=== PATIENT | female | born 1995 | race Caucasian/White ===

== ENCOUNTER 2020-02-29 19:54 | Emergency (ER) | payer MEDICAID ==
[~2020-02-29] VITALS: Ht 172.7 cm; Wt 86.2 kg
[2020-02-29 20:23] VITALS: BP 139/102
--- NOTE | 2020-02-29 20:29 | NUR ---
PT AMBULATED TO BED 11 WITH STEADY GAIT.
--- NOTE | 2020-02-29 20:40 | NUR ---
24 Y/O FEMALE PRESENTED TO THE ED C/O LUMP ON LABIA [id number]. AND 10/10 PAIN WHEN SHE AMBULATES. PT ALSO STATED THAT SHE DIDN'T CHECK HER GLUCOSE BUT THAT SHE KNOWS ITS ELEVATED BECAUSE SHE FEELS MORE TIRED. PT DENIES LAGUERRE, BLURRY VISION, N/V. PT IS NON COMPLIANT WITH ANTIDIABETIC MEDICATION REGIMEN. PT DESNIES DIFFICULTY URINATING. PT DENIES FEVER. PT DENIES TRAUMA OR INJURY TO THE AREA. TENDERNESS NOTED ON PALPATION OF THE ABCESS ON THE LABIA MAJORA. NO REDNESS NOTED OR DRAINAGE TO THE AREA NOTED. PT LAYING DOWN. NO DIAPHORESIS NOTED. PT IS NOT IN ANY ACUTE DISTRESS AT THIS TIME. BED IS LOCKED AND IN LOWEST POSITION. SIDE RAILS X1. PMH: DM1 NKA
[2020-02-29] MEDS ORDERED: NACL 0.9% 1,000 ML IV ONE (20:50)
[2020-02-29 21:09] LABS: BASOPHILS # (AUTO) 0.1 K/uL (0.00-0.22); BASOPHILS % (AUTO) 0.8 % (0.0-2.0); EOSINOPHILS # (AUTO) 0.1 K/uL (0-0.4); EOSINOPHILS % (AUTO) 0.7 % (0.0-4.0); HEMATOCRIT 39.4 % (36-48); HEMOGLOBIN 13.3 g/dL (12.0-16.0); LYMPHOCYTES # (AUTO) 2.1 K/uL (2.5-16.5); LYMPHOCYTES % (AUTO) 28.6 % (20.5-51.1); MEAN CORPUSCULAR HEMOGLOBIN 30 pg (27-31); MEAN CORPUSCULAR HGB CONC 34 g/dL (33-37); MEAN CORPUSCULAR VOLUME 89.6 fL (80-94); MONOCYTES # (AUTO) 0.3 K/uL (0.8-1.0); MONOCYTES % (AUTO) 3.9 % (1.7-9.3); PLATELET COUNT (AUTO) 205 K/uL (140-450); RED CELL DISTRIBUTION WIDTH 12.9 % (11.6-13.7); WHITE BLOOD COUNT (AUTO) 7.5 K/uL (4.8-10.8)
--- NOTE | 2020-02-29 21:14 | NUR ---
ambulated to restroom with steady gait
--- NOTE | 2020-02-29 21:19 | NUR ---
ambulated back to ed room 11 from restroom with steady gait
[2020-02-29 21:22] LABS: ANION GAP 13.2 (8-16); CREATININE 0.7 mg/dL (0.6-1.3); POTASSIUM 4.2 mmol/L (3.5-5.1)
--- NOTE | 2020-02-29 21:49 | NUR ---
Female Information Technology Architect accompanied female patient for Vaginal Exam administered by TREVOR Meléndez.
--- NOTE | 2020-02-29 21:55 | NUR ---
Female Lift Truck Mechanic accompanied female patient for VAGINAL Exam ADMINISTERED BY TREVOR JACKSON. Addendum: 02/29/20 at 2203 by ZORAIDA Female Lift Truck Mechanic accompanied female patient for Ultrasound VAGINAL Exam ADMINISTERED BY TREVOR JACKSON.
--- NOTE | 2020-02-29 22:04 | NUR ---
urine sample collected and handed to lab.
[2020-02-29] MEDS ORDERED: HYDROcodone/APAP 5/325 MG 1 TAB TAB PO ONE (22:05)
[2020-02-29] MEDS ORDERED: LIDOCAINE MPF 1% 10 MG/ML VIAL INJ ONE ×3 (22:05)
--- NOTE | 2020-02-29 22:30 | NUR ---
Female County Program Technician FOR ERPA JACKSON accompanied female patient for VAGINAL ABCESS DC.
[2020-02-29] MEDS ORDERED: LIDOCAINE MPF 1% 5 ML ONE (22:44)
[2020-02-29] MEDS ORDERED: INSULIN REGULAR, HUMAN 100 UNIT/ML VIAL IVP ONE (23:00)
--- NOTE | 2020-02-29 23:20 | NUR ---
PER TREVOR JACKSON PT IS READY FOR DISCHARGE ONCE HER BLOOD SUGAR GETS IN THE 300S. ERMD IS MADE AWARE.
--- NOTE | 2020-02-29 23:40 | NUR ---
QUINN KEN AT BEDSIDE FOR RE-EVALUATION
--- NOTE | 2020-02-29 23:50 | NUR ---
PT C/O OF BLEEDING ON HERSELF. PT PROVIDED PAD AT THIS TIME. PT AMBULATED TO RESTROOM.
--- NOTE | 2020-02-29 23:54 | NUR ---
NEW SHEET PLACED ON BED FOR PT COMFORT.
--- NOTE | 2020-03-01 00:40 | NUR ---
pt is laying down in bed, bed is locked and in lowest position, side rails x1, pt is not in any acute distress at this time, pt states pain level is 0/10.
[2020-03-01 01:20] VITALS: BP 142/92
--- NOTE | 2020-03-01 01:20 | NUR ---
Patient discharged with v/s stable. Written and verbal after care instructions given and explained. Patient alert, oriented and verbalized understanding of instructions. Ambulatory with steady gait. All questions addressed prior to discharge. ID band removed. Patient advised to follow up with PMD. Rx of norco, augmentin, bactrim, & ibuprofen given. Patient educated on indication of medication including possible reaction and side effects. Opportunity to ask questions provided and answered.
== END 2020-03-01 01:20 | disposition home or self-care (01) ==
LOC: MED 19:54
DX: N76.4 Abscess of vulva (principal); E10.65 Type 1 diabetes mellitus with hyperglycemia
CPT/HCPCS: 36415; 80048; 82948; 85025; 90471; 96360; 99283; J1815; J2001; J7030

== ENCOUNTER 2020-03-03 12:49 | Emergency (ER) | payer MEDICAID, OTHER ==
[~2020-03-03] VITALS: Ht 171.4 cm; Wt 87.1 kg
[2020-03-03 13:05] VITALS: BP 129/94
--- NOTE | 2020-03-03 14:55 | NUR ---
PT TAKEN TO BED 8.
--- NOTE | 2020-03-03 15:10 | NUR ---
24 Y/O FEMALE COMES FROM HOME PRESENTS TO ED FOR REVISION OF INCISION FROM REMOVAL OF CYST TO VAGINAL AREA AND PACKING PLACED. WAS SEEN HERE ON 02/28. WAS TOLD TO COME BACK TO ER FOR RECHECK OF WOUND. PT STATES 2/10 ACHY PAIN, STATES SHE IS STILL SLIGHTLY BLEEDING FROM SITE, SEROSANGUINOUS IN COLOR. DENIES FEVER CHILLS, N/V. HX- DM1 NKA
[2020-03-03 15:30] VITALS: BP 129/94
--- NOTE | 2020-03-03 15:31 | NUR ---
Patient discharged with v/s stable. Written and verbal after care instructions given and explained. Patient verbalized understanding. Ambulatory with steady gait. All questions addressed prior to discharge. Advised to follow up with PMD.
== END 2020-03-03 15:31 | disposition home or self-care (01) ==
LOC: MED 12:49
DX: N76.4 Abscess of vulva (principal); E11.9 Type 2 diabetes mellitus without complications; Z48.00 Encounter for change or removal of nonsurgical wound dressing
CPT/HCPCS: 99281

== ENCOUNTER 2020-08-05 13:38 | Emergency (ER) | payer OTHER, SELFPAY ==
[~2020-08-05] VITALS: Ht 172.7 cm; Wt 86.2 kg
[~2020-08-05 13:38] MED LIST: INSU100I7 SQ; INSU100V3 SQ; LANTUS SUBQ
[2020-08-05 13:48] VITALS: BP 131/89
--- NOTE | 2020-08-05 13:56 | NUR ---
Patient to bed 1. RN evaluating the patient at bedside.
--- NOTE | 2020-08-05 13:57 | NUR ---
24 YO FEMALE BIBA FOR C/O FEELING "DIFFERENT", POSSIBLE , LMP 03/03, DAY UNKNOWN. NO CARE. PT STATES SHE HAD NOT TAKEN HER SUGAR X2DAYS, REMOVED DEVICE AND WHEN REPLACED YESTERDAY BS AT HOME 441. TODAY AT BEDSIDE BS 59. MADE AWARE, PT IS NOT SHOWING SYMPTOMS OF HYPOGLYCEMIA AT THIS TIME. PMH: TYPE 1 DM NKA
[2020-08-05] MEDS ORDERED: DOPPLER MC ONE (14:08)
--- NOTE | 2020-08-05 14:39 | NUR ---
MO Millard at pt bedside for further evaluation.
--- NOTE | 2020-08-05 14:58 | NUR ---
MO Millard at pt bedside for U/S.
[2020-08-05 15:33] VITALS: BP 131/89
== END 2020-08-05 15:33 | disposition home or self-care (01) ==
LOC: MED 13:38
DX: O26.891 Other specified pregnancy related conditions, first trimester (principal); O21.9 Vomiting of pregnancy, unspecified; E10.65 Type 1 diabetes mellitus with hyperglycemia; Z3A.01 Less than 8 weeks gestation of pregnancy
CPT/HCPCS: 81002; 81025; 99284

== ENCOUNTER 2021-10-22 17:41 | Inpatient (IN) | payer MEDICAID, OTHER ==
[~2021-10-22] VITALS: Ht 172.7 cm; Wt 65.8 kg
[2021-10-22] MEDS: BLOOD GLUCOSE MONITORING 1 DEV DEV FS SCH
[2021-10-22] MEDS: NACL 0.9% 1,000 ML IV SCH ×2 (02:55→22:50)
[2021-10-22 17:50] VITALS: BP 126/72
--- NOTE | 2021-10-22 17:51 | NUR ---
PT AMB TO BED 9.
--- NOTE | 2021-10-22 18:49 | NUR ---
26 y/o female, c/o weakness, dry mouth, and general body pain. pt states "my sugar is high", did not do acucheck at home. pt states she also didnt use her insulin because she said "I didnt think I was going to make it here". accucheck at this time is 362, made aware. denies nausea, vomiting, diarrhea. skin is pink/warm/dry. a&o x4 with even and steady gait. lungs clear bl, heart rate even and regular. pt denies any fever, cp, sob, or cough at this time. pt states pain is 9/10 at this time. patient positioned for comfort. hob elevated. bed down. ermd made aware of pt. pmh: dm1 nka med: insulin (did not take at home)
--- NOTE | 2021-10-22 19:19 | NUR ---
Report received from KAYLEE infante. Continuity of pt care at this time.
--- NOTE | 2021-10-22 19:40 | NUR ---
pt appears to be resting w eyes closed in supine position w breathing even and unlabored. will continue to monitor.
[2021-10-22] MEDS ORDERED: NACL 0.9% 2,000 ML IV ONE ×2 (20:05→21:35)
--- NOTE | 2021-10-22 20:05 | NUR ---
Pt reports feeling tired/weak, and dry mouth. denies any pain or other symptoms. aox4, gcs 15.
--- NOTE | 2021-10-22 20:06 | NUR ---
kaci levin assessing pt.
[2021-10-22 20:23] LABS: BASOPHILS % (AUTO) 0.6 % (0.0-2.0); HEMATOCRIT 34.9 % (36-48); HEMOGLOBIN 11.9 g/dL (12.0-16.0); LYMPHOCYTES # (AUTO) 0.8 K/uL (2.5-16.5); LYMPHOCYTES % (AUTO) 10.6 % (20.5-51.1); MEAN CORPUSCULAR HEMOGLOBIN 30 pg (27-31); MEAN CORPUSCULAR HGB CONC 34 g/dL (33-37); MEAN CORPUSCULAR VOLUME 87.3 fL (80-94); MONOCYTES # (AUTO) 0.2 K/uL (0.8-1.0); MONOCYTES % (AUTO) 2.9 % (1.7-9.3); NEUTROPHILS # (AUTO) 6.2 K/uL (1.8-7.7); NEUTROPHILS % (AUTO) 85.9 % (42.2-75.2); PLATELET COUNT (AUTO) 217 K/uL (140-450); RED BLOOD CELL COUNT(AUTO) 3.99 MIL/uL (4.20-5.40); RED CELL DISTRIBUTION WIDTH 13.5 % (11.6-13.7); WHITE BLOOD COUNT (AUTO) 7.2 K/uL (4.8-10.8)
[2021-10-22 20:25] LABS: BILIRUBIN,URINE NEGATIVE (NEGATIVE); BLOOD, URINE 1+ (NEGATIVE); COLOR,URINE YELLOW (YELLOW); LEUKOCYTE ESTERASE ,URINE 1+ (NEGATIVE); NITRITE, URINE POSITIVE (NEGATIVE); UGLUCOSE 3+ (NEGATIVE)
[2021-10-22 20:30] LABS: APPEARANCE,URINE CLOUDY (CLEAR)
[2021-10-22] MEDS ORDERED: ACETAMINOPHEN EXTRA STRENGTH 500 MG TAB PO ONE (20:30)
[2021-10-22 20:38] LABS: ALBUMIN 2.9 g/dL (3.4-5.0); ANION GAP 20.3 (8-16); CARBON DIOXIDE 20.6 mmol/L (21-32); CREATININE 0.6 mg/dL (0.6-1.3); MAGNESIUM 1.2 mg/dL (1.8-2.4); POTASSIUM 3.9 mmol/L (3.5-5.1); TOTAL BILIRUBIN 0.8 mg/dL (0.0-1.0)
[2021-10-22 20:46] LABS: WBC,URINE TOO MANY TO COUNT /HPF (0-5)
[2021-10-22] MEDS ORDERED: INSULIN REGULAR, HUMAN 100 UNIT in NACL 0.9% 100 ML IV SCH ×4 (20:55→22:55)
[2021-10-22] MEDS ORDERED: ONDANSETRON 4 MG/2 ML VIAL IVP PRN (21:00)
[2021-10-22] MEDS ORDERED: POTASSIUM CHLORIDE 10 MEQ TABER PO ONE (21:00)
[2021-10-22] MEDS ORDERED: cefTRIAXone 1,000 MG VIAL ONE (21:16)
--- NOTE | 2021-10-22 22:42 | NUR ---
chen sent to lab.
--- NOTE | 2021-10-22 22:44 | NUR ---
pt reports no longer feeling weak, just tired, ongoing dry mouth. no pain, sob or other symptoms. will continue to monitor.
--- NOTE | 2021-10-22 22:50 | NUR ---
pt BS 274, per ermd to continue insulin drip at 7u/hr for now. per ermd will put in parameters orders for insulin titration in a few moment.
[2021-10-22] MEDS ORDERED: guaiFENesin DM 200/20 MG-10 ML 10 ML UDC PO PRN (22:55)
[2021-10-22] MEDS ORDERED: ONDANSETRON 4 MG/2 ML VIAL IM/IVP PRN (22:55)
[2021-10-22] MEDS ORDERED: DOCUSATE SODIUM 100 MG GELCAP PO PRN (22:55)
[2021-10-22] MEDS ORDERED: ZOLPIDEM 5 MG TAB PO PRN (22:55)
[2021-10-22] MEDS ORDERED: DEXT 5% / NACL 0.45% 1,000 ML IV SCH (22:55)
[2021-10-22] MEDS ORDERED: HYDROcodone/APAP 7.5/325 MG 1 TAB PO PRN (22:55)
[2021-10-22] MEDS ORDERED: INSULIN REGULAR, HUMAN 100 UNIT/ML VIAL IVP SCH (22:55)
[2021-10-22] MEDS ORDERED: POTASSIUM CHLORIDE 40 MEQ, LIDOCAINE MPF 1% 25 MG in NACL 0.9% 250 ML IV PRN ×6 (22:55)
[2021-10-22] MEDS ORDERED: DEXTROSE 50% 50 ML SYR IVP PRN (22:55)
[2021-10-22 23:22] LABS: CHOL/HDL RATIO 4.7 (1-4.5); FREE T4 (FREE THYROXINE) 1.05 ng/dL (0.76-1.46); THYROID STIMULATING HORMONE 0.45 uIU/mL (0.34-3.74)
[2021-10-22 23:23] LABS: PROTHROMBIN TIME 10.1 secs (10.8-13.4)
[2021-10-23] VITALS (16 sets, daily range): BP systolic 103–126; BP diastolic 57–93
--- NOTE | 2021-10-23 00:25 | NUR ---
Pt report given to juan barker. Transfer of care at this time.
--- NOTE | 2021-10-23 00:30 | NUR ---
Patient will be admitted to care of . Admited to icu 2. Will go to room icu 2. Belongings list completed. Report to juan barker.
--- NOTE | 2021-10-23 00:39 | NUR ---
RECEIVED PT. FROM ER. AND ER NURSE GAVE REPORT PRIOR TO TRANSFER. PT. WIDE AWAKE, ALERT, ORIENTED AND AMBULATORY. WILL DO THE ADMISSION.
[2021-10-23 00:42] LABS: ANION GAP 12.6 (8-16); CARBON DIOXIDE 23.6 mmol/L (21-32); CREATININE 0.7 mg/dL (0.6-1.3); POTASSIUM 3.2 mmol/L (3.5-5.1)
[2021-10-23 00:46] LABS: MAGNESIUM 1.1 mg/dL (1.8-2.4); PHOSPHORUS 1.9 mg/dL (2.5-4.9)
[2021-10-23] MEDS: BLOOD GLUCOSE MONITORING 1 DEV DEV FS SCH ×8 (02:55→20:24)
--- NOTE | 2021-10-23 03:45 | NUR ---
BLOOD SUGAR TAKEN AT 0106 AND RESULT 119, BS AT 0207 RESULT 139, BS AT 0315 RESULT 93. STARTED IVF D5 1/2NS AT 200 ML/HR PER MD ORDERED TO RIGHT AC 20G.
[2021-10-23 04:57] LABS: ANION GAP 10.6 (8-16); CARBON DIOXIDE 24.6 mmol/L (21-32); CREATININE 0.5 mg/dL (0.6-1.3); POTASSIUM 3.2 mmol/L (3.5-5.1)
[2021-10-23 05:00] LABS: MAGNESIUM 1.2 mg/dL (1.8-2.4); PHOSPHORUS 2.6 mg/dL (2.5-4.9)
--- NOTE | 2021-10-23 05:16 | NUR ---
BLOOD SUGAR AT 0415, 67 AND AT 0515, 80.
[2021-10-23 05:42] LABS: BASOPHILS % (AUTO) 0.6 % (0.0-2.0); EOSINOPHILS % (AUTO) 0.2 % (0.0-4.0); HEMATOCRIT 33.3 % (36-48); HEMOGLOBIN 11.4 g/dL (12.0-16.0); LYMPHOCYTES # (AUTO) 2.7 K/uL (2.5-16.5); LYMPHOCYTES % (AUTO) 40.5 % (20.5-51.1); MEAN CORPUSCULAR HEMOGLOBIN 30 pg (27-31); MEAN CORPUSCULAR HGB CONC 34 g/dL (33-37); MEAN CORPUSCULAR VOLUME 87.6 fL (80-94); MONOCYTES # (AUTO) 0.3 K/uL (0.8-1.0); MONOCYTES % (AUTO) 4.2 % (1.7-9.3); NEUTROPHILS # (AUTO) 3.6 K/uL (1.8-7.7); NEUTROPHILS % (AUTO) 54.5 % (42.2-75.2); PLATELET COUNT (AUTO) 208 K/uL (140-450); RED BLOOD CELL COUNT(AUTO) 3.81 MIL/uL (4.20-5.40); RED CELL DISTRIBUTION WIDTH 13.8 % (11.6-13.7); WHITE BLOOD COUNT (AUTO) 6.6 K/uL (4.8-10.8)
[2021-10-23] MEDS: NACL 0.9% 1,000 ML IV SCH ×5 (06:55→22:11)
--- NOTE | 2021-10-23 07:11 | NUR ---
NS 250 ML NOT GIVEN FOR THE TIME 2250, PT. STILL IN ER DURING THAT TIME
--- NOTE | 2021-10-23 07:15 | NUR ---
ALL CARE ENDORSED TO RN DAYSHIFT FOR CONTINUITY OF CARE.
--- NOTE | 2021-10-23 07:20 | NUR ---
BLOOD SUGAR AT THIS TIME 105 AND ENDORSED TO DAY SHIFT RN.
--- NOTE | 2021-10-23 07:30 | NUR ---
RECEIVED REPORT FROM HANNY . PT.AWAKE ALERT ON ROOM AIR , AND ON INSULIN DRIP 0.5/KG/H IVFLUID D5.45 NS AT 250/H AT THE TIME.,SKIN DRY WARM AND INTACT,DENIER PAIN.
--- NOTE | 2021-10-23 08:48 | NUR ---
PATIENT HAS BEEN SCREENED AND CATEGORIZED HIGH NUTRITION RISK. PATIENT WILL BE SEEN WITHIN 1-2 DAYS OF ADMISSION. / FLYNN GANNON RD
[2021-10-23 08:49] LABS: ANION GAP 9.6 (8-16); CARBON DIOXIDE 26.9 mmol/L (21-32); CREATININE 0.6 mg/dL (0.6-1.3); POTASSIUM 3.5 mmol/L (3.5-5.1)
[2021-10-23 08:54] LABS: MAGNESIUM 1.1 mg/dL (1.8-2.4); PHOSPHORUS 1.9 mg/dL (2.5-4.9)
[2021-10-23] MEDS: PANTOPRAZOLE 40 MG TABEC PO SCH (09:00)
--- NOTE | 2021-10-23 09:24 | NUR ---
SEEN BY DR FORTE AT BED SIDE, ORDER RECEIVED,
[2021-10-23] MEDS ORDERED: INSULIN LANTUS 100 UNITS/ML 10 ML VIAL SUBQ SCH (09:25)
--- NOTE | 2021-10-23 10:15 | NUR ---
INSULIN DRIP D/C ,PT. AWAKE AND ALERT NO NAUSEA OR VOMITING.
--- NOTE | 2021-10-23 11:30 | NUR ---
SEEN BY CHESTER LOVE AT BED SIDE, ORDER RECEIVED .
--- NOTE | 2021-10-23 11:45 | NUR ---
BS 254 INSULIN COVER ORDERED
[2021-10-23] MEDS: INSULIN LISPRO 100 UNITS/ML VIAL SUBQ SCH ×2 (11:51→18:11)
[2021-10-23] MEDS ORDERED: POTASSIUM CHLORIDE 10 MEQ TABER PO PRN (14:05)
[2021-10-23 14:23] LABS: ANION GAP 13.8 (8-16); CREATININE 0.7 mg/dL (0.6-1.3); POTASSIUM 3.8 mmol/L (3.5-5.1)
--- NOTE | 2021-10-23 14:56 | NUR ---
10/23/21 RD FOLLOW UP COMPLETED PLEASE REFER TO NUTRITION ASSESSMENT UNDER CARE ACTIVITY FOR ESTIMATED NUTRITIONAL NEEDS. 1. [facility] DIET TOLERATED -MONITOR PO INTAKE AND GI SYMPTOMS 2. PROVIDED NUTRITION EDUCATION FOR DIABETES WITH HANDOUTS 3. RD TO FOLLOW-UP 3-5 DAYS, MODERATE RISK FLYNN GANNON RD
--- NOTE | 2021-10-23 15:16 | NUR ---
OOB TO TOILET OUTSIDE FROM ICU WITH OUT PROBLEM.
[2021-10-23 15:34] LABS: MAGNESIUM 1.2 mg/dL (1.8-2.4); PHOSPHORUS 1.6 mg/dL (2.5-4.9)
[2021-10-23] MEDS: POTASSIUM CHLORIDE 10 MEQ TABER PO PRN (15:49)
[2021-10-23] MEDS ORDERED: INSULIN LISPRO SLIDING SCALE 100 UNITS/ML VIAL SUBQ PRN (16:20)
[2021-10-23 16:30] LABS: ANION GAP 11.6 (8-16); CARBON DIOXIDE 24.1 mmol/L (21-32); CREATININE 0.5 mg/dL (0.6-1.3); POTASSIUM 3.7 mmol/L (3.5-5.1)
--- NOTE | 2021-10-23 17:00 | NUR ---
BLOOD SUGAR 241 INSULIN COVER ORDERED. + 8UNIT LISPO INSULIN BEFOR MEAL.
--- NOTE | 2021-10-23 17:30 | NUR ---
VISIT BY FAMILY AT BEDSIDE,
[2021-10-23] MEDS: INSULIN LISPRO SLIDING SCALE 100 UNITS/ML VIAL SUBQ PRN ×2 (18:12→20:29)
--- NOTE | 2021-10-23 18:30 | NUR ---
DINNER TOOK 90% denied pain.
--- NOTE | 2021-10-23 19:23 | NUR ---
RESTING COCTOSTABILELY. REPORT GIVE TO GIOVANNI FOR CONTINUE CARE.
--- NOTE | 2021-10-23 19:30 | NUR ---
RECEIVED REPORT FROM IMER PAGE. PT LYING IN SUPINE POSITION WITH NO COMPLAINTS. ON ASSESSMENT PT HAD A HI TEMPERATURE 101.5. COVERS REMOVED AND TYLENOL 650MG PO GIVEN . RECHECKED TEMPERATURE AT 2100; TEMP DOWN TO 99.6 PO. OT WALKED TO THE BATHROOM AND HAD A MODERATE SIZE BM. BROWN IN COLOR.PT AMBULATES WITH A STEADY GAIT, BUT IS ASSISTED TO THE BATHROOM.
[2021-10-23] MEDS: ACETAMINOPHEN 325 MG TAB PO PRN (19:41)
[2021-10-23 20:17] LABS: ANION GAP 12.4 (8-16); CARBON DIOXIDE 25.1 mmol/L (21-32); CREATININE 0.6 mg/dL (0.6-1.3); POTASSIUM 4.5 mmol/L (3.5-5.1)
[2021-10-23 20:22] LABS: MAGNESIUM 1.3 mg/dL (1.8-2.4); PHOSPHORUS 1.6 mg/dL (2.5-4.9)
[2021-10-23 22:58] LABS: MAGNESIUM 1.2 mg/dL (1.8-2.4); PHOSPHORUS 1.8 mg/dL (2.5-4.9)
[2021-10-24] VITALS: BP 128/92
[2021-10-24 01:29] LABS: ANION GAP 12.2 (8-16); CARBON DIOXIDE 24.2 mmol/L (21-32); CREATININE 0.5 mg/dL (0.6-1.3); POTASSIUM 3.4 mmol/L (3.5-5.1)
[2021-10-24 01:31] LABS: MAGNESIUM 1.4 mg/dL (1.8-2.4); PHOSPHORUS 2.2 mg/dL (2.5-4.9)
[2021-10-24] MEDS: NACL 0.9% 1,000 ML IV SCH ×4 (03:01→14:40)
[2021-10-24 05:00] LABS: ANION GAP 9.4 (8-16); CREATININE 0.5 mg/dL (0.6-1.3); POTASSIUM 3.4 mmol/L (3.5-5.1)
[2021-10-24 05:06] LABS: HEMATOCRIT 32.6 % (36-48); HEMOGLOBIN 10.9 g/dL (12.0-16.0); MEAN CORPUSCULAR HEMOGLOBIN 30 pg (27-31); MEAN CORPUSCULAR HGB CONC 33 g/dL (33-37); MEAN CORPUSCULAR VOLUME 88.6 fL (80-94)
[2021-10-24 05:07] LABS: MAGNESIUM 1.2 mg/dL (1.8-2.4); PHOSPHORUS 2.2 mg/dL (2.5-4.9)
[2021-10-24 05:23] LABS: BASOPHILS % (AUTO) 0.9 % (0.0-2.0); EOSINOPHILS % (AUTO) 0.3 % (0.0-4.0); LYMPHOCYTES % (AUTO) 41.1 % (20.5-51.1); MONOCYTES # (AUTO) 0.3 K/uL (0.8-1.0); MONOCYTES % (AUTO) 5.6 % (1.7-9.3); NEUTROPHILS # (AUTO) 2.5 K/uL (1.8-7.7); NEUTROPHILS % (AUTO) 52.1 % (42.2-75.2); PLATELET COUNT (AUTO) 180 K/uL (140-450); RED BLOOD CELL COUNT(AUTO) 3.68 MIL/uL (4.20-5.40); RED CELL DISTRIBUTION WIDTH 13.4 % (11.6-13.7); WHITE BLOOD COUNT (AUTO) 4.8 K/uL (4.8-10.8)
[2021-10-24] MEDS: ACETAMINOPHEN 325 MG TAB PO PRN ×2 (06:27→06:30)
[2021-10-24] MEDS ORDERED: INSULIN LANTUS 100 UNITS/ML 10 ML VIAL SUBQ SCH (06:30)
[2021-10-24 06:33] VITALS: BP 135/90
[2021-10-24 08:30] VITALS: BP 126/80
[2021-10-24] MEDS: BLOOD GLUCOSE MONITORING 1 DEV DEV FS SCH ×2 (08:31→11:31)
[2021-10-24] MEDS: PANTOPRAZOLE 40 MG TABEC PO SCH (08:46)
[2021-10-24 08:51] LABS: CARBON DIOXIDE 26.3 mmol/L (21-32); CREATININE 0.5 mg/dL (0.6-1.3); POTASSIUM 3.3 mmol/L (3.5-5.1)
[2021-10-24 08:56] LABS: MAGNESIUM 1.2 mg/dL (1.8-2.4); PHOSPHORUS 2.2 mg/dL (2.5-4.9)
[2021-10-24] MEDS: INSULIN LISPRO SLIDING SCALE 100 UNITS/ML VIAL SUBQ PRN ×2 (09:00→11:35)
[2021-10-24] MEDS: POTASSIUM CHLORIDE 10 MEQ TABER PO PRN (09:40)
[2021-10-24 12:00] VITALS: BP 121/79
[2021-10-24] MEDS ORDERED: SULF-954 PO (13:17)
[2021-10-24 14:22] LABS: ANION GAP 9.9 (8-16); CARBON DIOXIDE 27.4 mmol/L (21-32); CREATININE 0.4 mg/dL (0.6-1.3); POTASSIUM 3.3 mmol/L (3.5-5.1)
[2021-10-24 14:24] VITALS: BP 121/79
[2021-10-24 14:28] LABS: MAGNESIUM 1.4 mg/dL (1.8-2.4); PHOSPHORUS 2.4 mg/dL (2.5-4.9)
--- NOTE | 2021-10-24 15:36 | NUR ---
RECEIVED PT FROM ICU TODAY - AROUND 0830. VSS, DENIES PAIN OR SOB, BLOOD SUGAR MONITORED AND INSULIN GIVEN, PT SAFELY AMBULATES, IV'S REMOVED, DISCHARGE EDUCATION PROVIDED, PT UNDERSTANDS TO HEAD OF TRAINING AND DEVELOPMENT PRESCRIPTION, VERBALIZES THE IMPORTANCE OF CHECKING BLOOD SUGARS AT HOME, WILL FOLLOW UP WITH PCP. PT FREE FROM INJURY AND STABLE FOR DISCHARGE HOME WITH FAMILY.
== END 2021-10-24 15:35 | disposition home or self-care (01) | DRG 720 ==
LOC: MED 17:41 → MIC 22:54 → MMU 22:54 → MIC 10-23 00:16 → MTU 10-24 07:55
PROVIDERS: ADMIT Student in an Organized Health Care Education/Training Program; ATTEND Student in an Organized Health Care Education/Training Program
DX: A41.9 Sepsis, unspecified organism (principal); E10.10 Type 1 diabetes mellitus with ketoacidosis without coma; E44.0 Moderate protein-calorie malnutrition; E83.51 Hypocalcemia; E87.1 Hypo-osmolality and hyponatremia; D64.9 Anemia, unspecified; N39.0 Urinary tract infection, site not specified; Z20.822 Contact with and (suspected) exposure to COVID-19; E87.6 Hypokalemia; E83.42 Hypomagnesemia; Z68.22 Body mass index [BMI] 22.0-22.9, adult
CPT/HCPCS: 36415; 71045; 80048; 80053; 81001; 82009; 82150; 82948; 83036; 83605; 83690; 83735; 83880; 84100; 84436; 84439; 84443; 84479; 85025; 85610; 85730; 87040; 87081; 87086; 96361; 96365; 96368; 99285; J0696; J1815; J2001; J3480; J7030; J7060; Q0092

== ENCOUNTER 2022-01-17 15:49 | Inpatient (IN) | payer MEDICAID ==
[~2022-01-17] VITALS: Ht 172.7 cm; Wt 93.9 kg
[~2022-01-17 15:49] MED LIST changes: -LANTUS SUBQ; +SULF-954 PO
[2022-01-17 16:15] VITALS: BP 129/77
[2022-01-17] MEDS ORDERED: ACETAMINOPHEN EXTRA STRENGTH 500 MG TAB PO ONE (16:15)
[2022-01-17 17:05] LABS: BASOPHILS % (AUTO) 0.5 % (0.0-2.0); HEMATOCRIT 36.9 % (36-48); HEMOGLOBIN 12.6 g/dL (12.0-16.0); LYMPHOCYTES # (AUTO) 0.9 K/uL (2.5-16.5); MEAN CORPUSCULAR HEMOGLOBIN 31 pg (27-31); MEAN CORPUSCULAR HGB CONC 34 g/dL (33-37); MEAN CORPUSCULAR VOLUME 89.3 fL (80-94); MONOCYTES # (AUTO) 0.5 K/uL (0.8-1.0); MONOCYTES % (AUTO) 5.5 % (1.7-9.3); NEUTROPHILS # (AUTO) 7.7 K/uL (1.8-7.7); PLATELET COUNT (AUTO) 173 K/uL (140-450); RED BLOOD CELL COUNT(AUTO) 4.13 MIL/uL (4.20-5.40); RED CELL DISTRIBUTION WIDTH 13.4 % (11.6-13.7); WHITE BLOOD COUNT (AUTO) 9.1 K/uL (4.8-10.8)
[2022-01-17 17:25] LABS: APPEARANCE,URINE CLEAR (CLEAR); BILIRUBIN,URINE 1+ (NEGATIVE); BLOOD, URINE 2+ (NEGATIVE); COLOR,URINE YELLOW (YELLOW); LEUKOCYTE ESTERASE ,URINE NEGATIVE (NEGATIVE); NITRITE, URINE NEGATIVE (NEGATIVE); UGLUCOSE 2+ (NEGATIVE)
--- NOTE | 2022-01-17 17:25 | NUR ---
MOVED TO ER BED 1
[2022-01-17] MEDS ORDERED: NACL 0.9% 2,000 ML IV ONE (17:30)
[2022-01-17 17:33] LABS: ACETONE, SERUM LARGE (NEGATIVE)
[2022-01-17 17:37] LABS: WBC,URINE 0-5 /HPF (0-5)
[2022-01-17 17:38] LABS: OTHER CASTS, URINE None Seen /LPF (None Seen)
[2022-01-17 17:40] LABS: ANION GAP 29.8 (8-16); ASPARTATE AMINOTRANSFERASE 14 U/L (15-37); CARBON DIOXIDE 10.9 mmol/L (21-32); CHLORIDE 94 mmol/L (98-107); CREATININE 0.8 mg/dL (0.6-1.3); GFR ARICAN-AMERICAN 113 mL/min (>90); GLUCOSE 375 mg/dL (74-106); POTASSIUM 3.7 mmol/L (3.5-5.1); SODIUM SERUM 131 mmol/L (136-145); TOTAL BILIRUBIN 0.7 mg/dL (0.0-1.0); UREA NITROGEN, BLOOD 6 mg/dL (7-18)
--- NOTE | 2022-01-17 17:46 | NUR ---
26 Y/O F C/O FEVER, N/V, HIGH BLOOD SUGAR , LOWER ABD PAIN, LOWER BACK PAIN X YESTERDAY. BLOOD SUGAR 370 AT THIS TIME. NKA PMH: DM TYPE1
[2022-01-17] MEDS ORDERED: INSULIN REGULAR, HUMAN 100 UNIT in NACL 0.9% 100 ML IV SCH ×2 (19:00)
--- NOTE | 2022-01-17 19:50 | NUR ---
RECEIVED Pt AAOX4, SKIN W/D TO TOUCH, TYPE 1 DM SINCE AGE 15. PER CONVERSATION W/ PATIENT HERE IN ED DUE TO UNUSUAL FOR HER HIGH BLOOD SUGARS (377 AND HIGHER), MALAISE, N/V, FEVER X2 DAYS, PER NOTES FEVER UPON ARRIVAL TO ED. PER Pt VERBALIZATION, ASSESSMENT, AND DIABETIC EDUCATION Pt W/ POOR DIABETIC MANAGEMENT AND FAIZA RE: THE USE OF REGULAR INSULIN AND FOOD INGESTION TIME FRAME. RECEPTIVE TO EDUCATION HOWEVER, NEEDS FURTHER DIABETIC EDUCATION.
[2022-01-17 20:37] LABS: MAGNESIUM 1.7 mg/dL (1.8-2.4); PHOSPHORUS 1.7 mg/dL (2.5-4.9)
[2022-01-17 20:49] LABS: PROTHROMBIN TIME 10.5 secs (10.8-13.4)
[2022-01-17] MEDS ORDERED: guaiFENesin DM 200/20 MG-10 ML 10 ML UDC PO PRN (21:00)
[2022-01-17] MEDS ORDERED: ONDANSETRON 4 MG/2 ML VIAL IM/IVP PRN (21:00)
[2022-01-17] MEDS ORDERED: DOCUSATE SODIUM 100 MG GELCAP PO PRN (21:00)
[2022-01-17] MEDS ORDERED: DEXTROSE 50% 50 ML SYR IVP PRN (21:00)
[2022-01-17] MEDS ORDERED: HYDROcodone/APAP 7.5/325 MG 1 TAB PO PRN (21:00)
[2022-01-17] MEDS ORDERED: ZOLPIDEM 5 MG TAB PO PRN (21:00)
[2022-01-17] MEDS: NACL 0.9% 1,000 ML IV SCH (21:00)
[2022-01-17] MEDS: BLOOD GLUCOSE MONITORING 1 DEV DEV FS SCH ×2 (21:00→22:00)
--- NOTE | 2022-01-17 21:06 | NUR ---
HOLLIE CALDERON TEST COLLECTED AND SENT TO LAB
[2022-01-18] VITALS (11 sets, daily range): BP systolic 91–135; BP diastolic 46–79
--- NOTE | 2022-01-18 | NUR ---
Pt on q 1 Hr BS, w/ insulin slidding scale.
[2022-01-18] MEDS: BLOOD GLUCOSE MONITORING 1 DEV DEV FS SCH ×24 (00:15→23:32)
[2022-01-18] MEDS ORDERED: POTASSIUM CHLORIDE 10 MEQ TABER PO SCH ×2 (00:30→22:30)
[2022-01-18 00:49] LABS: ANION GAP 22.5 (8-16); CARBON DIOXIDE 11.9 mmol/L (21-32); CREATININE 0.9 mg/dL (0.6-1.3); POTASSIUM 4.4 mmol/L (3.5-5.1)
[2022-01-18 00:53] LABS: MAGNESIUM 1.8 mg/dL (1.8-2.4); PHOSPHORUS 2.9 mg/dL (2.5-4.9)
[2022-01-18] MEDS: NACL 0.9% 1,000 ML IV SCH ×7 (01:00→23:49)
--- NOTE | 2022-01-18 03:00 | NUR ---
PT WAS ON RA DESAT TO 88% STAT ABG ORDERED BY DR MAYERS. Pt PLACED ON O2 6l N/C.
--- NOTE | 2022-01-18 03:35 | NUR ---
Pt w/ Resp changes and increased Blood sugar. Dr Bustamante called for orders, orders given. Informed of Stat ABG results ordere by Dr Hensley.
[2022-01-18] MEDS ORDERED: NACL 0.9% 1,000 ML IV SCH (03:45)
[2022-01-18] MEDS ORDERED: ONDANSETRON 4 MG/2 ML VIAL IVP PRN (03:45)
[2022-01-18] MEDS ORDERED: MAG SULF 2000 MG/WATER PREMIX 50 ML IV PRN (03:50)
--- NOTE | 2022-01-18 03:54 | NUR ---
X-Ray at bedside.
--- NOTE | 2022-01-18 03:58 | NUR ---
Dr. Hensley examining patient.
[2022-01-18 04:00] LABS: BARBITURATE, URINE NEGATIVE ng/ml (NEG <=200); BENZODIAZEPINE, URINE NEGATIVE ng/mL (NEG <=200); CANNABINOID, URINE NEGATIVE ng/mL (NEG <=50); COCAINE, URINE NEGATIVE ng/mL (NEG <=300); OPIATE, URINE NEGATIVE ng/mL (NEG <=2000); PHENCYCLIDINE SCREEN,URINE NEGATIVE ng/mL (NEG <=25)
[2022-01-18] MEDS ORDERED: SODIUM BICARBONATE 8.4% PFS 50 MEQ/50 ML SYR IVP ONE (04:05)
[2022-01-18] MEDS ORDERED: INSULIN REGULAR, HUMAN 100 UNIT/ML VIAL IVP ONE (04:05)
[2022-01-18 04:49] LABS: MAGNESIUM 1.9 mg/dL (1.8-2.4); PHOSPHORUS 2.7 mg/dL (2.5-4.9)
[2022-01-18 04:52] LABS: ANION GAP 31.3 (8-16); POTASSIUM 4.4 mmol/L (3.5-5.1)
[2022-01-18 04:56] LABS: CARBON DIOXIDE 6.1 mmol/L (21-32)
--- NOTE | 2022-01-18 05:00 | NUR ---
Blood sugars improved, Pt resp improved on high flow oxygen, and s/p Sodium Bicarb IV and insulin bolus. Will cot to monitor for changes. pt is stabilized at present.
--- NOTE | 2022-01-18 06:05 | NUR ---
Rounded on pt, at bedside w/ Dr Bustamante in ED.
--- NOTE | 2022-01-18 06:05 | NUR ---
Dr. Salter examining patient.
[2022-01-18 06:06] LABS: BASOPHILS % (AUTO) 0.4 % (0.0-2.0); HEMATOCRIT 39.1 % (36-48); HEMOGLOBIN 12.9 g/dL (12.0-16.0); LYMPHOCYTES # (AUTO) 1.4 K/uL (2.5-16.5); LYMPHOCYTES % (AUTO) 12.9 % (20.5-51.1); MEAN CORPUSCULAR HEMOGLOBIN 30 pg (27-31); MEAN CORPUSCULAR HGB CONC 33 g/dL (33-37); MEAN CORPUSCULAR VOLUME 92.5 fL (80-94); MONOCYTES # (AUTO) 0.6 K/uL (0.8-1.0); MONOCYTES % (AUTO) 5.5 % (1.7-9.3); NEUTROPHILS # (AUTO) 8.7 K/uL (1.8-7.7); NEUTROPHILS % (AUTO) 81.2 % (42.2-75.2); PLATELET COUNT (AUTO) 181 K/uL (140-450); RED BLOOD CELL COUNT(AUTO) 4.23 MIL/uL (4.20-5.40); RED CELL DISTRIBUTION WIDTH 13.9 % (11.6-13.7); WHITE BLOOD COUNT (AUTO) 10.7 K/uL (4.8-10.8)
--- NOTE | 2022-01-18 06:38 | NUR ---
Utilization review Lease Out Man for Pt insurance called requesting clinicals for admit criteria and stay approval.
--- NOTE | 2022-01-18 07:20 | NUR ---
Pt ENDORSED TO ONCOMING SHIFT -7 AM RN.
--- NOTE | 2022-01-18 07:25 | NUR ---
Report received from film processing shift supervisor nurse, patient is resting with eyes closed, respirations are even and unlabored, pt is on high flow nasal cannula 20L, FiO2 20%, O2 sat of 97%, respirations at 27, tachycardic at 111. Insulin drip noted to be at 9.02 units/hr.
[2022-01-18] MEDS: DEXT 5% / NACL 0.45% 1,000 ML IV SCH (08:19)
[2022-01-18 08:23] LABS: ANION GAP 25.7 (8-16); CARBON DIOXIDE 9.8 mmol/L (21-32); CREATININE 0.8 mg/dL (0.6-1.3); POTASSIUM 3.5 mmol/L (3.5-5.1)
[2022-01-18 08:28] LABS: MAGNESIUM 1.5 mg/dL (1.8-2.4)
--- NOTE | 2022-01-18 08:30 | NUR ---
REPEAT FSBG TAKEN AT 0830 147. PER PROOCOL DECRESASE DRIP BY 0.05 UNITS/KG, CONTACTED PHARMACY TO VERIFY NEW RATE OF 4.45 UNITS/HR. VERIFIED BY KAYLEE LEWIS.
--- NOTE | 2022-01-18 08:30 | NUR ---
RT AT BEDSIDE, INCREASED FIO2 ON HIGH FLOW NC TO 40%.
[2022-01-18 08:36] LABS: PHOSPHORUS 0.9 mg/dL (2.5-4.9)
--- NOTE | 2022-01-18 10:11 | NUR ---
PATIENT HAS BEEN SCREENED AND CATEGORIZED HIGH NUTRITION RISK. PATIENT WILL BE SEEN WITHIN 1-2 DAYS OF ADMISSION. 01/19/[address]
[2022-01-18] MEDS: ACETAMINOPHEN 325 MG TAB PO PRN (10:44)
[2022-01-18] MEDS: PANTOPRAZOLE 40 MG TABEC PO SCH (10:46)
[2022-01-18] MEDS ORDERED: SODIUM PHOSPHATE 30 MMOLE in NACL 0.9% 250 ML IV ONE (11:00)
[2022-01-18] MEDS: INSULIN REGULAR, HUMAN 100 UNIT in NACL 0.9% 100 ML IV SCH ×4 (11:05→18:00)
--- NOTE | 2022-01-18 12:23 | NUR ---
Patient will be admitted to care of Dr. Bustamante. Admited to ICU. Will go to room 1. Belongings list completed. Report to Delia FINANCIAL AID DIRECTOR.
--- NOTE | 2022-01-18 12:40 | NUR ---
RECEIVED BEDSIDE REPORT FROM NEO PAGE FOR CONTINUITY OF CARE. A/OX4, NANCY. HI-FLOW NC 20L FIO2 28%. SR ON MONITOR. NPO. CONTINENT OF BOWEL AND BLADDER. 20G IV TO LAC INFUSING INSULIN AT 0.1 UNITS/KG/HR. 20G IV TO RAC INFUSING D5 1/2NS AT 150 ML/HR. 22G IV TO R FOREARM INFUSING SODIUM PHOSPHATE AT 42.5 ML/HR. TEMP 98.6. MILD WEAKNESS TO EXTREMITIES. CALL LIGHT WITHIN REACH, BED WHEELS LOCKED AND IN LOWEST POSITION.
--- NOTE | 2022-01-18 13:00 | NUR ---
IV INFUSIONS ADJUSTED TO PROTOCOL PER GLUCOSE LEVEL 191. INSULIN RUNNING AT 0.05 UNITS/KG/HR. SWITCHED IVF TO NS AT 250 ML/HR PER PROTOCOL. Addendum: 01/18/22 at 1513 by Rose Flores RN D5 1/2 NS RUNNING AT 150ML/HR, NOT NS.
[2022-01-18 14:01] LABS: ANION GAP 20.7 (8-16); CARBON DIOXIDE 11.4 mmol/L (21-32); CREATININE 0.8 mg/dL (0.6-1.3); POTASSIUM 3.1 mmol/L (3.5-5.1)
[2022-01-18 14:13] LABS: MAGNESIUM 1.3 mg/dL (1.8-2.4)
[2022-01-18 14:26] LABS: ANION GAP 21.7 (8-16); CARBON DIOXIDE 10.4 mmol/L (21-32); CREATININE 0.7 mg/dL (0.6-1.3); POTASSIUM 3.1 mmol/L (3.5-5.1)
--- NOTE | 2022-01-18 15:05 | NUR ---
01/18/22 RD INITIAL ASSESSMENT COMPLETED PLEASE REFER TO NUTRITION ASSESSMENT UNDER CARE ACTIVITY FOR ESTIMATED NUTRITIONAL NEEDS. 1. WHEN/IF MEDICALLY APPROPRIATE, RECOMMEND CCHO 60GM DIET -RECOMMEND GLUCERNA BID IF PO INTAKE < 75% 2. MONITOR BLOOD GLUCOSE LEVELS 3. CONSULT RD PRN 4. RD TO FOLLOW-UP 3-5 DAYS, MODERATE RISK FLYNN GANNON RD
--- NOTE | 2022-01-18 15:06 | NUR ---
SW ATTEMPTED TO MEET WITH PATIENT AT BEDSIDE TO COMPLETE ASSESSMENT, HOWEVER ,PATIENT HEAVILY SLEEPING AND WOULD NOT RESPOND TO PROMPTS. SW TO FOLLOW
[2022-01-18] MEDS: SODIUM PHOS / POTASSIUM PHOS 1 PKT PDR PO SCH (16:09)
[2022-01-18] MEDS: POTASSIUM CHLORIDE 40 MEQ, LIDOCAINE MPF 1% 25 MG in NACL 0.9% 250 ML IV PRN (16:42)
[2022-01-18 17:04] LABS: MAGNESIUM 1.5 mg/dL (1.8-2.4); PHOSPHORUS 2.3 mg/dL (2.5-4.9)
--- NOTE | 2022-01-18 18:12 | NUR ---
FAMILY VISITED AT BEDSIDE.
[2022-01-18] MEDS ORDERED: MAG SULF 2000 MG/WATER PREMIX 50 ML IV SCH (19:00)
--- NOTE | 2022-01-18 19:10 | NUR ---
RECEIVED REPORT FROM KELTON LY IS IN STATED CONDITION. SHE IS RECEIVING MAG VILMA FOR A LOW MAGNESIUM AND A POTASSIUM VILMA FOR A CRITICAL LOW POTASSIUM 0F 3.1. SHE IS ON AN INSULIN GTT AT -05 UNITS /KG/HR. HER LAST BLOOD SUGAR WAS 153, AND HER ANION GAP WAS 12 . WAITING FOR THE NEXT BLOOD DRAW. PT IS REFUSING HER HI-FLOW OXYGEN. STATES I DON'T WANT TO WEAR IT. SHE DENIES PAIN, STATES SHE IS JUST TIRED. SHE APPEARS TO BE W/O DISTRESS, BUT STATES SHE IS COLD SHE HAS SUFFICIENT COVERS ON .
--- NOTE | 2022-01-18 19:13 | NUR ---
ENDORSED BEDSIDE REPORT TO KAYLEE DAVILA FOR CONTINUITY OF CARE.
--- NOTE | 2022-01-18 20:10 | NUR ---
PT RECEIVED FROM DAY SHIFT RT ON ROOM AIR SATING WELL, REFUSED TO PT HFNC BACK ON AND OBTAINED Q4 VBG AND NOTIFIED DOCTOR REANNA THE RESULTS. AMBU BAG AT BED SIDE.
--- NOTE | 2022-01-18 20:37 | NUR ---
RT TEXT DR. FORTE THE ABG RESULTS. HE WAS INFORMED THAT THE PT REFUSED HI FLOW SHE WAS ON 2L NC. DR FORTE TEXT BACK GOT IT THANK YOU. SHE DOESN'T NEED OXYGEN SHE 99-100%SPO2. ER ANION GAP IS 15.2
[2022-01-18 20:56] LABS: ANION GAP 15.2 (8-16); CARBON DIOXIDE 17.8 mmol/L (21-32); CREATININE 0.7 mg/dL (0.6-1.3)
--- NOTE | 2022-01-18 21:00 | NUR ---
LAB RESULTED THE PT'S POTASSIUM AT 3.O FOR THE 1999 DRAW. IT WAS LOWER THAN THE 3.1 EARLIER AND SHE RECEIVED 40MEQ OF POTASSIUM @68ML /HOUR . IT JUST FINISHED AT 1930. I REQUESTED A REDRAW BEFORE CONTACTING DR. REED FOR A PREMIX IN PLACE OF THE 40MEQ WITH LIDOCAINE IN 250 NS.
[2022-01-18 21:05] LABS: MAGNESIUM 1.4 mg/dL (1.8-2.4); PHOSPHORUS 1.8 mg/dL (2.5-4.9)
[2022-01-18] MEDS ORDERED: BLOOD GLUCOSE MONITORING 1 DEV DEV FS SCH (22:00)
[2022-01-18] MEDS ORDERED: MAGNESIUM OXIDE 400 MG TAB PO SCH (22:30)
[2022-01-18] MEDS ORDERED: POTASSIUM CHLORIDE 10 MEQ TABER PO ONE ×2 (23:00→23:15)
[2022-01-19] VITALS (24 sets, daily range): BP systolic 90–137; BP diastolic 48–86
[2022-01-19] MEDS: BLOOD GLUCOSE MONITORING 1 DEV DEV FS SCH ×24 (00:33→23:00)
[2022-01-19 00:45] LABS: ANION GAP 15.4 (8-16); CARBON DIOXIDE 17.2 mmol/L (21-32); CREATININE 0.8 mg/dL (0.6-1.3)
[2022-01-19 00:48] LABS: MAGNESIUM 1.2 mg/dL (1.8-2.4)
[2022-01-19 00:53] LABS: PHOSPHORUS 0.9 mg/dL (2.5-4.9); POTASSIUM 2.6 mmol/L (3.5-5.1)
--- NOTE | 2022-01-19 01:00 | NUR ---
AAND THIS VALUE WAS LOWER THAN THE 3.O; IT'S 2.6 ANF HER PHOSPOROUS IS DOWN TO .9. TEXT DR. FORTE AT 0137. NO TEXT BACK . CALLED DR. FORTE AND RECEIVED ORDERS.
--- NOTE | 2022-01-19 01:00 | NUR ---
LAB REPORTED A CRITICAL POTASSIUM ON PATIENT AGAIN A
[2022-01-19] MEDS ORDERED: SODIUM PHOSPHATE 30 MMOLE in NACL 0.9% 250 ML IV ONE (02:25)
[2022-01-19] MEDS ORDERED: SODIUM PHOS / POTASSIUM PHOS 1 PKT PDR PO ONE (02:25)
--- NOTE | 2022-01-19 02:39 | NUR ---
Texted Ranjit Pharmacist regarding medication order Sodium Phosphate 30 mmol in 250ml NS. Waiting for Ranjit to text back
--- NOTE | 2022-01-19 02:55 | NUR ---
Texted Ranjit Pharmacist regarding medication order Sodium Phosphate 30 mmol in 250ml NS. Waiting for Ranjit to text back
--- NOTE | 2022-01-19 02:56 | NUR ---
Called Ranjit Pharmacist regarding medication order Sodium Phosphate 30 mmol in 250ml NS. Waiting for Ranjit to call back
--- NOTE | 2022-01-19 03:03 | NUR ---
Ranjit texted back, stated that medication can wait untill the morning, not an emergency product
[2022-01-19] MEDS: NACL 0.9% 1,000 ML IV SCH ×4 (05:00→16:51)
[2022-01-19 05:57] LABS: ANION GAP 12.3 (8-16); BASOPHILS % (AUTO) 0.3 % (0.0-2.0); CARBON DIOXIDE 20.2 mmol/L (21-32); CREATININE 0.6 mg/dL (0.6-1.3); EOSINOPHILS % (AUTO) 0.3 % (0.0-4.0); HEMATOCRIT 29.6 % (36-48); HEMOGLOBIN 10.2 g/dL (12.0-16.0); LYMPHOCYTES # (AUTO) 2.2 K/uL (2.5-16.5); LYMPHOCYTES % (AUTO) 35.1 % (20.5-51.1); MEAN CORPUSCULAR HEMOGLOBIN 30 pg (27-31); MEAN CORPUSCULAR HGB CONC 35 g/dL (33-37); MONOCYTES # (AUTO) 0.6 K/uL (0.8-1.0); MONOCYTES % (AUTO) 8.9 % (1.7-9.3); NEUTROPHILS # (AUTO) 3.5 K/uL (1.8-7.7); NEUTROPHILS % (AUTO) 55.4 % (42.2-75.2); PLATELET COUNT (AUTO) 149 K/uL (140-450); RED BLOOD CELL COUNT(AUTO) 3.37 MIL/uL (4.20-5.40); RED CELL DISTRIBUTION WIDTH 13.1 % (11.6-13.7); WHITE BLOOD COUNT (AUTO) 6.3 K/uL (4.8-10.8)
[2022-01-19] MEDS ORDERED: KCL 20 MEQ/WATER INJ PREMIX 200 ML IV ONE ×4 (06:28→22:39)
[2022-01-19 06:34] LABS: POTASSIUM 2.5 mmol/L (3.5-5.1)
--- NOTE | 2022-01-19 07:30 | NUR ---
RECEIVED PATIENT FROM DRY CANS BACK TENDER NURSE FOR CONTINUITY OF CARE. PT IS AOX4, ABLE TO MAKE NEEDS KNOWN. ON ROOM AIR AND NO DISTRESS NOTED. SKIN IS WARM, DRY, AND INTACT. SKIN IS WARM, DRY, AND INTACT. IV SITE ON RAC 20G, RFA 22G, AND LAC 20G. ON INSULIN DRIP AT 0.05 UNIT/KG/HR AND INFUSING FLUIDS WELL. DENIES PAIN AT THE MOMENT. PLAN OF CARE DISCUSSED. SAFETY PRECAUTIONS IN PLACE. CALL LIGHT WITHIN REACH. WILL CONTINUE TO MONITOR.
[2022-01-19] MEDS ORDERED: POTASSIUM CHLORIDE 10 MEQ TABER PO SCH ×2 (09:00→22:40)
[2022-01-19] MEDS ORDERED: SODIUM PHOSPHATE 30 MMOLE in NACL 0.9% 500 ML IV SCH (09:00)
[2022-01-19 09:30] LABS: ANION GAP 15.1 (8-16); CARBON DIOXIDE 17.7 mmol/L (21-32); CREATININE 0.5 mg/dL (0.6-1.3); POTASSIUM 3.8 mmol/L (3.5-5.1)
[2022-01-19] MEDS: PANTOPRAZOLE 40 MG TABEC PO SCH (09:31)
[2022-01-19] MEDS: SODIUM PHOS / POTASSIUM PHOS 1 PKT PDR PO SCH ×3 (09:31→16:47)
[2022-01-19 10:06] LABS: MAGNESIUM 2.1 mg/dL (1.8-2.4); PHOSPHORUS 1.5 mg/dL (2.5-4.9)
[2022-01-19] MEDS: DEXT 5% / NACL 0.45% 1,000 ML IV SCH (11:01)
--- NOTE | 2022-01-19 11:55 | NUR ---
CHECKED ON PATIENT. PT IS STABLE. NO DISTRESS NOTED. WILL CONTINUE TO MONITOR.
[2022-01-19 12:38] LABS: ANION GAP 14.5 (8-16); CARBON DIOXIDE 20.2 mmol/L (21-32); CREATININE 0.5 mg/dL (0.6-1.3); POTASSIUM 3.7 mmol/L (3.5-5.1)
[2022-01-19 13:03] LABS: PHOSPHORUS 1.4 mg/dL (2.5-4.9)
[2022-01-19] MEDS: ACETAMINOPHEN 325 MG TAB PO PRN (15:55)
--- NOTE | 2022-01-19 15:55 | NUR ---
PATIENT TEMP WAS ELEVATED. 103.2. NOTIFIED MD AND NEW ORDERS WERE RECEIVED.
[2022-01-19] MEDS: INSULIN REGULAR, HUMAN 100 UNIT in NACL 0.9% 100 ML IV SCH ×2 (16:11)
[2022-01-19 17:00] LABS: ANION GAP 16.6 (8-16); CARBON DIOXIDE 18.8 mmol/L (21-32); CREATININE 0.6 mg/dL (0.6-1.3); POTASSIUM 3.4 mmol/L (3.5-5.1)
[2022-01-19 17:03] LABS: MAGNESIUM 1.8 mg/dL (1.8-2.4); PHOSPHORUS 1.8 mg/dL (2.5-4.9)
[2022-01-19] MEDS: IBUPROFEN 400 MG TAB PO PRN (18:48)
--- NOTE | 2022-01-19 19:30 | NUR ---
RECEIVED REPORT FROM CASANDRA PAGE FOR CONTINUED CARE OF PT . PT K+ IS TRENDING DOWN AGAIN. TEXT DR. MCNAIR AND HE GAVE ORDERS . IT TOOK THEW OUTSIDE PHARMACY SOMETIME TO GET THE ORDER STRAIGHT WHICH DELAYED THE ADMINISTRATION OF THE MEDICATION. PT'S TEMP CAME DOWN TO 101.2 AND THE TO 98.4
[2022-01-19 19:33] LABS: BASOPHILS % (AUTO) 0.2 % (0.0-2.0); EOSINOPHILS % (AUTO) 0.1 % (0.0-4.0); HEMATOCRIT 32.8 % (36-48); HEMOGLOBIN 11.4 g/dL (12.0-16.0); LYMPHOCYTES # (AUTO) 0.5 K/uL (2.5-16.5); MEAN CORPUSCULAR HEMOGLOBIN 30 pg (27-31); MEAN CORPUSCULAR HGB CONC 35 g/dL (33-37); MEAN CORPUSCULAR VOLUME 86.9 fL (80-94); MONOCYTES # (AUTO) 0.2 K/uL (0.8-1.0); MONOCYTES % (AUTO) 3.4 % (1.7-9.3); NEUTROPHILS # (AUTO) 4.2 K/uL (1.8-7.7); NEUTROPHILS % (AUTO) 86.3 % (42.2-75.2); PLATELET COUNT (AUTO) 164 K/uL (140-450); RED BLOOD CELL COUNT(AUTO) 3.78 MIL/uL (4.20-5.40); WHITE BLOOD COUNT (AUTO) 4.9 K/uL (4.8-10.8)
--- NOTE | 2022-01-19 19:45 | NUR ---
ENDORSED TO COURT DEPUTY NURSE FOR CONTINUITY OF CARE.
[2022-01-19 20:03] LABS: ANION GAP 15.2 (8-16); CARBON DIOXIDE 20.4 mmol/L (21-32); CREATININE 0.6 mg/dL (0.6-1.3)
[2022-01-19 20:05] LABS: MAGNESIUM 1.8 mg/dL (1.8-2.4); PHOSPHORUS 1.7 mg/dL (2.5-4.9)
[2022-01-19 20:07] LABS: ALBUMIN 2.2 g/dL (3.4-5.0); ANION GAP 15.4 (8-16); CARBON DIOXIDE 20.2 mmol/L (21-32); CREATININE 0.6 mg/dL (0.6-1.3); TOTAL BILIRUBIN 0.4 mg/dL (0.0-1.0)
[2022-01-19 20:11] LABS: POTASSIUM 2.6 mmol/L (3.5-5.1)
[2022-01-19 20:13] LABS: POTASSIUM 2.6 mmol/L (3.5-5.1)
[2022-01-19 21:56] LABS: APPEARANCE,URINE CLEAR (CLEAR); BILIRUBIN,URINE NEGATIVE (NEGATIVE); BLOOD, URINE 1+ (NEGATIVE); COLOR,URINE YELLOW (YELLOW); LEUKOCYTE ESTERASE ,URINE TRACE (NEGATIVE); NITRITE, URINE NEGATIVE (NEGATIVE); UGLUCOSE 2+ (NEGATIVE)
[2022-01-19] MEDS ORDERED: POTASSIUM CHLORIDE 10 MEQ TABER PO ONE (22:40)
[2022-01-19] MEDS ORDERED: KCL 20 MEQ/WATER INJ PREMIX 200 ML IV SCH (22:40)
[2022-01-19 22:45] LABS: RBC,URINE 0-5 /HPF (0-5)
[2022-01-19] MEDS ORDERED: KCL 20 MEQ/WATER INJ PREMIX 100 ML IV ONE ×2 (23:00)
[2022-01-20] VITALS (23 sets, daily range): BP systolic 104–162; BP diastolic 52–100
--- NOTE | 2022-01-20 | NUR ---
AT 0000 PT TEMP SOARED AGAIN TO 102.4 ADMINISTERED TYLENOL 650MG PO.
[2022-01-20] MEDS ORDERED: KCL 20 MEQ/WATER INJ PREMIX 200 ML IV SCH (00:25)
[2022-01-20] MEDS: BLOOD GLUCOSE MONITORING 1 DEV DEV FS SCH ×16 (01:00→20:00)
--- NOTE | 2022-01-20 02:00 | NUR ---
PT'ST TEM UP TO 103.2 PO. PLACED ON A COOLING BLANKET. EXPLAINED TO THE PATIENT THAT IT WOULD BE COLD AND UNCOMFORTABLE. SHE UNDERSTOOD AND WAS AGREEABLE. SHE DID HAVE AN EMESIS . SHE PUT OUT 100CC OF GREENISH LIQUID.
[2022-01-20 05:59] LABS: ANION GAP 12.8 (8-16); CARBON DIOXIDE 23.2 mmol/L (21-32); CREATININE 0.4 mg/dL (0.6-1.3)
[2022-01-20 06:17] LABS: BASOPHILS % (AUTO) 0.7 % (0.0-2.0); EOSINOPHILS % (AUTO) 0.1 % (0.0-4.0); HEMATOCRIT 32.8 % (36-48); HEMOGLOBIN 11.3 g/dL (12.0-16.0); LYMPHOCYTES # (AUTO) 0.6 K/uL (2.5-16.5); LYMPHOCYTES % (AUTO) 11.5 % (20.5-51.1); MEAN CORPUSCULAR HEMOGLOBIN 30 pg (27-31); MEAN CORPUSCULAR HGB CONC 35 g/dL (33-37); MEAN CORPUSCULAR VOLUME 86.6 fL (80-94); MONOCYTES # (AUTO) 0.3 K/uL (0.8-1.0); MONOCYTES % (AUTO) 6.2 % (1.7-9.3); NEUTROPHILS # (AUTO) 4.3 K/uL (1.8-7.7); NEUTROPHILS % (AUTO) 81.5 % (42.2-75.2); PLATELET COUNT (AUTO) 159 K/uL (140-450); RED BLOOD CELL COUNT(AUTO) 3.79 MIL/uL (4.20-5.40); RED CELL DISTRIBUTION WIDTH 13.2 % (11.6-13.7); WHITE BLOOD COUNT (AUTO) 5.2 K/uL (4.8-10.8)
--- NOTE | 2022-01-20 07:15 | NUR ---
SBAR REPORT RECEIVED FROM GIOVANNI PAGE, ALL CARES ASSUMED. PT RESTING IN BED WITH EYES CLOSED. BED IN LOW AND LOCKED POSITION.
--- NOTE | 2022-01-20 08:10 | NUR ---
DR. FORTE ROUNDING AT BEDSIDE, UPDATE GIVEN, PLAN OF CARE DISCUSSED. MD TO ENTER ORDERS.
[2022-01-20] MEDS ORDERED: VANCOMYCIN PER PHARMACY MC PRN (08:15)
[2022-01-20] MEDS: PANTOPRAZOLE 40 MG TABEC PO SCH (08:37)
[2022-01-20] MEDS: SODIUM PHOS / POTASSIUM PHOS 1 PKT PDR PO SCH ×3 (08:37→16:39)
[2022-01-20] MEDS: METOCLOPRAMIDE 10 MG/2 ML INJ VIAL IVP PRN (08:40)
[2022-01-20] MEDS: NACL 0.9% 1,000 ML IV SCH ×2 (09:00→13:16)
--- NOTE | 2022-01-20 09:20 | NUR ---
PT TRANSPORTED TO CT ON HOUSE WIRER. PT ABLE TO STAND AND PIVOT TO CT TABLE AND BACK TO BED. PT STABLE DURING CT. BACK IN ROOM 1, VSS.
[2022-01-20 10:15] LABS: FREE T4 (FREE THYROXINE) 1.25 ng/dL (0.76-1.46); THYROID STIMULATING HORMONE 0.95 uIU/mL (0.34-3.74)
[2022-01-20] MEDS: VANCOMYCIN HCL 1.25 GM in NACL 0.9% 250 ML IV SCH ×2 (10:40→18:20)
[2022-01-20] MEDS: ACETAMINOPHEN 325 MG TAB PO PRN ×2 (10:40→16:07)
[2022-01-20 10:44] LABS: BASOPHILS % (AUTO) 0.8 % (0.0-2.0); HEMATOCRIT 31.5 % (36-48); LYMPHOCYTES # (AUTO) 0.8 K/uL (2.5-16.5); LYMPHOCYTES % (AUTO) 16.3 % (20.5-51.1); MEAN CORPUSCULAR HEMOGLOBIN 30 pg (27-31); MEAN CORPUSCULAR HGB CONC 35 g/dL (33-37); MEAN CORPUSCULAR VOLUME 86.7 fL (80-94); MONOCYTES # (AUTO) 0.2 K/uL (0.8-1.0); MONOCYTES % (AUTO) 4.3 % (1.7-9.3); NEUTROPHILS # (AUTO) 3.6 K/uL (1.8-7.7); NEUTROPHILS % (AUTO) 78.6 % (42.2-75.2); PLATELET COUNT (AUTO) 176 K/uL (140-450); RED BLOOD CELL COUNT(AUTO) 3.63 MIL/uL (4.20-5.40); RED CELL DISTRIBUTION WIDTH 13.4 % (11.6-13.7); WHITE BLOOD COUNT (AUTO) 4.6 K/uL (4.8-10.8)
[2022-01-20 10:52] LABS: ANION GAP 13.9 (8-16); CREATININE 0.5 mg/dL (0.6-1.3)
[2022-01-20 10:54] LABS: POTASSIUM 2.9 mmol/L (3.5-5.1)
[2022-01-20] MEDS: CALCIUM CARB/VIT-D 500 MG/200 IU 1 TAB PO SCH ×3 (11:18→21:00)
[2022-01-20] MEDS: PIPERACILLIN/TAZOBACTAM 3.375 GM in DEXTROSE 5% 50 ML IV SCH ×2 (12:16→18:20)
[2022-01-20] MEDS ORDERED: INSULIN LANTUS 100 UNITS/ML 10 ML VIAL SUBQ SCH (13:30)
[2022-01-20 14:46] LABS: ANION GAP 11.9 (8-16); CARBON DIOXIDE 23.9 mmol/L (21-32); CREATININE 0.5 mg/dL (0.6-1.3)
[2022-01-20 14:51] LABS: POTASSIUM 2.8 mmol/L (3.5-5.1)
[2022-01-20] MEDS: INSULIN LISPRO 100 UNITS/ML VIAL SUBQ PRN ×2 (15:39→21:00)
[2022-01-20] MEDS: POTASSIUM CHLORIDE 40 MEQ, LIDOCAINE MPF 1% 25 MG in NACL 0.9% 250 ML IV PRN (15:40)
[2022-01-20] MEDS: POTASSIUM CHL 20 MEQ/D5-1/2NS 1,000 ML IV SCH ×2 (15:40→19:55)
[2022-01-21] VITALS (17 sets, daily range): BP systolic 91–168; BP diastolic 55–97
[2022-01-21] MEDS: ACETAMINOPHEN 325 MG TAB PO PRN ×3 (01:20→14:39)
[2022-01-21] MEDS: METOCLOPRAMIDE 10 MG/2 ML INJ VIAL IVP PRN (01:24)
[2022-01-21] MEDS: VANCOMYCIN HCL 1.25 GM in NACL 0.9% 250 ML IV SCH ×3 (02:00→18:58)
[2022-01-21] MEDS: POTASSIUM CHL 20 MEQ/D5-1/2NS 1,000 ML IV SCH ×3 (02:35→11:18)
[2022-01-21] MEDS: INSULIN LISPRO 100 UNITS/ML VIAL SUBQ PRN ×6 (04:00→21:58)
[2022-01-21] MEDS: BLOOD GLUCOSE MONITORING 1 DEV DEV FS SCH ×6 (04:00→20:00)
[2022-01-21] MEDS: PIPERACILLIN/TAZOBACTAM 3.375 GM in DEXTROSE 5% 50 ML IV SCH ×5 (05:40→18:02)
[2022-01-21 05:47] LABS: BASOPHILS % (AUTO) 0.6 % (0.0-2.0); EOSINOPHILS % (AUTO) 0.2 % (0.0-4.0); HEMATOCRIT 29.3 % (36-48); HEMOGLOBIN 10.2 g/dL (12.0-16.0); LYMPHOCYTES # (AUTO) 0.4 K/uL (2.5-16.5); LYMPHOCYTES % (AUTO) 8.7 % (20.5-51.1); MEAN CORPUSCULAR HEMOGLOBIN 30 pg (27-31); MEAN CORPUSCULAR HGB CONC 35 g/dL (33-37); MEAN CORPUSCULAR VOLUME 86.9 fL (80-94); MONOCYTES # (AUTO) 0.2 K/uL (0.8-1.0); MONOCYTES % (AUTO) 4.2 % (1.7-9.3); NEUTROPHILS # (AUTO) 4.3 K/uL (1.8-7.7); NEUTROPHILS % (AUTO) 86.3 % (42.2-75.2); PLATELET COUNT (AUTO) 154 K/uL (140-450); RED BLOOD CELL COUNT(AUTO) 3.38 MIL/uL (4.20-5.40); RED CELL DISTRIBUTION WIDTH 13.5 % (11.6-13.7)
--- NOTE | 2022-01-21 06:00 | NUR ---
--PT HAS BEEN A/OX4. PT HAS IV VIA RIGHT AC I/P. ATTEMPTS MADE FOR 2ND PIV BY 2RNS BUT UNSUCCESSFUL. PT WAS ALSO DIFFICULT FOR LAB TO DRAW. MANISH RUTHERFORD IS AWARE. ENDORSED TO HARINDER HERNANDEZ THAT PT POSSIBLY NEEDS A CENTRAL LINE. PT ALSO HAS BEEN FEBRILE WITH TMX OF 102F(O). PT MED WITH TYLENOL AND COOLING SANDRA. PT HAS BEEN VOIDING WELL-1800CC/RICK CLR. NO STOOL. PT ABLE TO USE BSC WITH LITTLE ASST. AM CARE GIVEN. PT'S BOYFRIEND WAS IN TO VISIT EARLIER IN SHIFT. AM LABS DONE. PT'S TEMP WENT UP TO 101F AT 0700. PT MED WITH TYLENOL AGAIN AND COOLING SANDRA GIVEN. PT HAS BEEN COOPERATIVE. GEN. COND. HAS BEEN STABLE/GUARDED. PT ENDORSED TO KAYLEE HERNANDEZ. BRAYDON PAGE
[2022-01-21 06:05] LABS: ANION GAP 14.8 (8-16); CARBON DIOXIDE 22.3 mmol/L (21-32); CREATININE 0.6 mg/dL (0.6-1.3); POTASSIUM 3.1 mmol/L (3.5-5.1)
[2022-01-21] MEDS ORDERED: INSULIN LANTUS 100 UNITS/ML 10 ML VIAL SUBQ SCH (09:00)
[2022-01-21] MEDS: PANTOPRAZOLE 40 MG TABEC PO SCH (09:22)
[2022-01-21] MEDS: SODIUM PHOS / POTASSIUM PHOS 1 PKT PDR PO SCH ×3 (09:23→16:56)
[2022-01-21] MEDS: CALCIUM CARB/VIT-D 500 MG/200 IU 1 TAB PO SCH ×3 (11:20→21:49)
[2022-01-21] MEDS: POTASSIUM CHLORIDE 40 MEQ, LIDOCAINE MPF 1% 25 MG in NACL 0.9% 250 ML IV PRN (13:06)
[2022-01-21] MEDS: POTASSIUM CHL 20 MEQ/ 1/2 NS 1,000 ML IV SCH ×2 (14:24→20:05)
--- NOTE | 2022-01-21 15:10 | NUR ---
SW MET WITH PATIENT AT BEDSIDE TO COMPLETE ASSESSMENT. PATIENT REPORTS RESIDING AT SOME WITH HER CHILD AND A ROOMMATE AT THE ADDRESS LISTED ON FILE. PATIENT IDENTIFIED CORRY SILVA [phone] EMERGENCY CONTACT AND MDM. PATIENT DENIES HAVING AD IN PLACE AND DECLINED AD OFFERED BY EVERARDO. PATIENT REPORTS MEETING WITH PCP REGULARLY (GERARDO CARO) NEEDED, AND REPORTS LAST VISIT "MIDDLE OF '". PATIENT REPORTS NON COMPLIANCE WITH MEDICATION AND DENIES BARRIERS IN ACCESS TO MEDICATION. SW SPOKE TO PATIENT ABOUT IMPORTANCE OF MEDICATION COMPLIANCE. PATIENT WAS RECEPTIVE AND REPORTED SHE WOULD BE COMPLIANT THIS IS HER WORST HOSPITALIZATION. PATIENT REPORTS PICKING UP MEDICATION FROM [address] IN [place], WHEN NEEDED. PATIENT REPORTS BEING AMBULATORY AND DENIES DME ASSISTANCE, PATIENT COMPLETES ALL ADL'S INDEPENDENTLY. PATIENT DENIES HX OF MH/SA. PATIENT REPORTS [employer] AND REPORTS RECEIVING SHE [employer] BENEFITS OF$433. PATIENT REPORTS THAT SHE IS NOT COMPLIANT WITH DIABETES NUTRITION. 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 PATIENT REPORTS DC PLAN IS TO RETURN HOME WITH FAMILY PICKING UP AND PROVIDING TRANSPORTATION AND AIDING IN REQUIRED CARE , OF NEEDED.
[2022-01-21] MEDS ORDERED: KETOROLAC 15 MG/ML VIAL IVP SCH (16:43)
--- NOTE | 2022-01-21 16:45 | NUR ---
CALLED DR. MENDEZ PT. HAS TEMP 102 .2 HE ORDER TYLENOL AND GIVE [id number] X1. GIVEN.
--- NOTE | 2022-01-21 17:56 | NUR ---
REVIEWED AND DISCUSSED PLAN OF CARE WITH GUICHO WIGGINS. WILL CONTINUE TO MONITOR
--- NOTE | 2022-01-21 17:58 | NUR ---
RECEIVED PT FROM ICU, PT ARRIVED VIA GURNEY. PT ALERT AND ORIENTED X3. V/S: BP 110/68, RR 18, O2 95%, TEMPERATURE OF 101.0. PT ON ROOM AIR, RESPIRATIONS ARE EVEN AND UNLABORED. IV SITE ON R A/C 20G AND 18G ON L HAND. NO DISTRESS NOTED. NO C/O OF PAIN. PT CAME WITH COOLING BLANKET. REORIENTED PT TO ROOM, CALL LIGHT AND RESTROOM. ALL SAFETY MEASURES IN PLACE.
--- NOTE | 2022-01-21 18:58 | NUR ---
PATIENT ZOSYN IS DONE. KAYLEE HURST HANGED VANCO ANTIBIOTIC. CONTINUES ON COOLING MEASURES.
--- NOTE | 2022-01-21 19:29 | NUR ---
RECEIVED PT ON BED, AWAKE, ALERT AND VERBALLY RESPONSIVE. PT IS ON COOLING BLANKET AND THERMOMETER IS ATTACHED IN THE RECTAL. PT IS ON STABLE CONDITION. IV SITE ON RIGHT AC 20G AND LEFT HAND 18G INTACT AND PATENT. SKIN INTACT, NO SKIN PROBLEM. CONTINUE MONITORING.
--- NOTE | 2022-01-21 19:30 | NUR ---
ENDORSED PT TO AIRCRAFT ENGINE DISMANTLER NURSE FOR CONTINUITY OF CARE. PT IN STABLE CONDITION.
--- NOTE | 2022-01-21 20:00 | NUR ---
PT REQUESTED TO USE RESTROOM. PT AMBULATES TO RESTROOM INDEPENDENTLY.
--- NOTE | 2022-01-21 20:15 | NUR ---
PT REFUSE TO USE COOLING BLANKET AND RECTAL THERMOMETER RELATED TO PT USES RESTROOM OFTENLY. MONITOR PT AND TAKE PT TEMP VIA SCAN AND ORAL TEMP. PT TEMP AT THIS TIME IS 97.3. PT IS ON STABLE CONDITION. NO SOB OR DISTRESS.
--- NOTE | 2022-01-21 21:00 | NUR ---
BLOOD SUGAR CHECK = 284 = 6 UNITS OF HUMOLOG INSULIN ADMINISTERED. PT IS STABLE, NO SOB OR DISTRESS.
--- NOTE | 2022-01-22 | NUR ---
BLOOD SUGAR CHECKED = 252 = 6 UNITS INSULIN ADMINISTERED PER SLIDING SCALE.
[2022-01-22] MEDS: BLOOD GLUCOSE MONITORING 1 DEV DEV FS SCH ×6 (00:11→20:53)
[2022-01-22] MEDS: INSULIN LISPRO 100 UNITS/ML VIAL SUBQ PRN ×5 (00:20→21:02)
--- NOTE | 2022-01-22 00:20 | NUR ---
PT IS ASLEEP AND ON STABLE CONDITION, NO SOB OR DISTRESS.
[2022-01-22] MEDS: PIPERACILLIN/TAZOBACTAM 3.375 GM in DEXTROSE 5% 50 ML IV SCH ×4 (00:43→17:26)
[2022-01-22] MEDS: POTASSIUM CHL 20 MEQ/ 1/2 NS 1,000 ML IV SCH ×4 (02:45→22:45)
--- NOTE | 2022-01-22 04:00 | NUR ---
PT VOMITED 1X, PT REFUSED OFFER FOR NAUSEA/VOMITING PILL.
[2022-01-22 06:12] LABS: BASOPHILS % (AUTO) 0.3 % (0.0-2.0); EOSINOPHILS # (AUTO) 0.2 K/uL (0-0.4); EOSINOPHILS % (AUTO) 2.4 % (0.0-4.0); HEMATOCRIT 30.1 % (36-48); HEMOGLOBIN 10.4 g/dL (12.0-16.0); LYMPHOCYTES # (AUTO) 0.9 K/uL (2.5-16.5); LYMPHOCYTES % (AUTO) 13.9 % (20.5-51.1); MEAN CORPUSCULAR HEMOGLOBIN 31 pg (27-31); MEAN CORPUSCULAR HGB CONC 35 g/dL (33-37); MEAN CORPUSCULAR VOLUME 88.3 fL (80-94); MONOCYTES # (AUTO) 0.5 K/uL (0.8-1.0); MONOCYTES % (AUTO) 7.9 % (1.7-9.3); NEUTROPHILS # (AUTO) 4.9 K/uL (1.8-7.7); NEUTROPHILS % (AUTO) 75.5 % (42.2-75.2); PLATELET COUNT (AUTO) 166 K/uL (140-450); RED BLOOD CELL COUNT(AUTO) 3.41 MIL/uL (4.20-5.40); RED CELL DISTRIBUTION WIDTH 13.5 % (11.6-13.7); WHITE BLOOD COUNT (AUTO) 6.5 K/uL (4.8-10.8)
[2022-01-22 06:17] LABS: ANION GAP 16.2 (8-16); CARBON DIOXIDE 22.5 mmol/L (21-32); CREATININE 0.9 mg/dL (0.6-1.3); POTASSIUM 3.7 mmol/L (3.5-5.1)
[2022-01-22 07:00] VITALS: BP 118/70
--- NOTE | 2022-01-22 07:00 | NUR ---
PT HAS ELEVATED BODY TEMP 100.5, PT REFUSED TO USE COOLING BLANKET.
[2022-01-22] MEDS: ACETAMINOPHEN 325 MG TAB PO PRN (07:18)
--- NOTE | 2022-01-22 07:18 | NUR ---
TYLENOL ADMINISTERED ORDERED.
[2022-01-22 08:00] VITALS: BP 112/78
[2022-01-22] MEDS: SODIUM PHOS / POTASSIUM PHOS 1 PKT PDR PO SCH ×3 (09:14→17:25)
[2022-01-22] MEDS: PANTOPRAZOLE 40 MG TABEC PO SCH (09:15)
[2022-01-22] MEDS: IBUPROFEN 400 MG TAB PO PRN (10:27)
[2022-01-22] MEDS: CALCIUM CARB/VIT-D 500 MG/200 IU 1 TAB PO SCH ×3 (10:29→20:56)
--- NOTE | 2022-01-22 10:30 | NUR ---
O2 SAT REPORTED 89% ON RA - REPEAT ALSO 89% ON RA. PT PLACED ON 1L O2/MIN VIA NC. RT NOTIFIED OF CHANGE AND WILL F/U W PT. Addendum: 01/22/22 at 1154 by Agency 05 RN RN REPEAT O2 SAT = 96% ON 1L O2/MIN VIA NC. PT REQUESTED CLEARANCE FOR SHOWER - DR MENDEZ NOTIFIED (COVERING FOR DR FORTE).
--- NOTE | 2022-01-22 14:30 | NUR ---
PT READYING TO SHOWER. RAC SL REMOVED (D/T LEAKAGE). PT IV SITE TO L WRIST STILL PATENT. PLASTIC COVERINGS APPLIED TO LWRIST IV SITE.
--- NOTE | 2022-01-22 15:38 | NUR ---
RECEIVED CRITICAL LAB RESULTS FOR U CX.: E.COLI & ESBL IN URINE.
[2022-01-22 16:00] VITALS: BP 116/76
--- NOTE | 2022-01-22 19:25 | NUR ---
RECEIVED PT ENDORSEMENT FROM DAY SHIFT NURSE FOR CONTINUITY OF CARE. PT IS ASLEEP. NO VOMITING ON TIME OF ENDORSEMENT. IV FLUID INFUSING WELL. CONTINUE MONITORING.
[2022-01-22 20:00] VITALS: BP 150/92
--- NOTE | 2022-01-22 20:00 | NUR ---
BLOOD SUGAR CHECK = 373. PT ASLEEP, NO SOB OR DISTRESS.
[2022-01-22] MEDS: MEROPENEM 1,000 MG in NACL 0.9% 50 ML IV SCH (20:54)
--- NOTE | 2022-01-23 | NUR ---
BLOOD SUGAR CHECKED = 273 = 6 UNITS.
[2022-01-23] MEDS: METOCLOPRAMIDE 10 MG/2 ML INJ VIAL IVP PRN (00:34)
[2022-01-23] MEDS: BLOOD GLUCOSE MONITORING 1 DEV DEV FS SCH ×6 (00:37→20:00)
[2022-01-23] MEDS: INSULIN LISPRO 100 UNITS/ML VIAL SUBQ PRN ×5 (00:42→16:56)
--- NOTE | 2022-01-23 02:00 | NUR ---
PT NOTED RELAX AND SLEEPING. NO SOB OR DISTRESS.
--- NOTE | 2022-01-23 04:00 | NUR ---
BLOOD SUGAR CHECK = 260 = 6 UNITS.
[2022-01-23] MEDS: MEROPENEM 1,000 MG in NACL 0.9% 50 ML IV SCH ×3 (04:42→21:14)
--- NOTE | 2022-01-23 05:00 | NUR ---
PT IS AWAKE, IV MERREM IS ON GOING, INFUSING WELL.
[2022-01-23] MEDS: POTASSIUM CHL 20 MEQ/ 1/2 NS 1,000 ML IV SCH ×3 (05:25→21:10)
[2022-01-23 05:31] LABS: BASOPHILS % (AUTO) 0.5 % (0.0-2.0); EOSINOPHILS % (AUTO) 0.9 % (0.0-4.0); HEMATOCRIT 28.5 % (36-48); HEMOGLOBIN 9.6 g/dL (12.0-16.0); LYMPHOCYTES # (AUTO) 0.8 K/uL (2.5-16.5); LYMPHOCYTES % (AUTO) 15.2 % (20.5-51.1); MEAN CORPUSCULAR HEMOGLOBIN 30 pg (27-31); MEAN CORPUSCULAR HGB CONC 34 g/dL (33-37); MEAN CORPUSCULAR VOLUME 88.5 fL (80-94); MONOCYTES # (AUTO) 0.5 K/uL (0.8-1.0); MONOCYTES % (AUTO) 9.6 % (1.7-9.3); NEUTROPHILS # (AUTO) 4.1 K/uL (1.8-7.7); NEUTROPHILS % (AUTO) 73.8 % (42.2-75.2); PLATELET COUNT (AUTO) 186 K/uL (140-450); RED BLOOD CELL COUNT(AUTO) 3.22 MIL/uL (4.20-5.40); RED CELL DISTRIBUTION WIDTH 13.6 % (11.6-13.7); WHITE BLOOD COUNT (AUTO) 5.5 K/uL (4.8-10.8)
[2022-01-23 06:13] LABS: ANION GAP 14.6 (8-16); CARBON DIOXIDE 23.1 mmol/L (21-32); CREATININE 2.1 mg/dL (0.6-1.3); POTASSIUM 3.7 mmol/L (3.5-5.1)
--- NOTE | 2022-01-23 07:30 | NUR ---
PT IS ON STABLE CONDITION. ALL SAFETY MEASURES IN PLACE. ENDORSED TO DAY SHIFT NURSE FOR CONTINUITY. OF CARE.
[2022-01-23 08:00] VITALS: BP 123/89
[2022-01-23] MEDS: INSULIN LANTUS 100 UNITS/ML 10 ML VIAL SUBQ SCH (08:28)
[2022-01-23] MEDS: SODIUM PHOS / POTASSIUM PHOS 1 PKT PDR PO SCH ×3 (08:31→17:35)
[2022-01-23] MEDS: PANTOPRAZOLE 40 MG TABEC PO SCH (08:31)
--- NOTE | 2022-01-23 08:33 | NUR ---
ADMINISTERED ALL SCHEDULED MEDICATIONS. EDUCATED PT ON MEDS ADMINISTERED. PT VERBALIZED UNDERSTANDING. PT BLOOD GLUCOSE WAS 265, COVERED WITH INSULIN PER SLIDING SCALE. PT COMPLAINTS OF PAIN, STATES 610. MEDICATED. WILL CONTINUE TO MONITOR.
--- NOTE | 2022-01-23 09:33 | NUR ---
WENT TO RE-ASSESS PT PAIN. PT RESTING AT THIS TIME. RESPIRATIONS ARE EVEN AND UNLABORED. NO SIGNS OF DISTRESS NOTED.
[2022-01-23] MEDS: CALCIUM CARB/VIT-D 500 MG/200 IU 1 TAB PO SCH ×3 (11:09→21:32)
--- NOTE | 2022-01-23 11:31 | NUR ---
PT BLOOD GLUCOSE WAS 228. COVERED WITH 2 UNITS INSULIN PER SLIDING SCALE. WILL CONTINUE TO MONITOR.
--- NOTE | 2022-01-23 13:35 | NUR ---
IV ABX ADMINISTERED BY RN.
--- NOTE | 2022-01-23 15:40 | NUR ---
PT CALLED, STATED SHE HAS NOT BEEN FEELING VERY HUNGRY. STATES THE FOOD HERE IS NOT APPEALING TO HER. ASKING FOR A MENU FOR DINNER TODAY AND BREAKFAST TOMORROW. CALLED [facility] TO ASK. MENU BROUGHT OVER. PT STATES SHE WILL LOOK OVER THE MENU AND SE EIF THERE IS SOMETHING SHE WANTS.
[2022-01-23 16:00] VITALS: BP 120/80
--- NOTE | 2022-01-23 16:56 | NUR ---
BLOOD GLUCOSE WAS 265. COVERED WITH INSULIN PER SLIDING SCALE.
--- NOTE | 2022-01-23 18:31 | NUR ---
01/23/22 RD FOLLOW UP COMPLETED.PLEASE REFER TO NUTRITION ASSESSMENT UNDER CARE ACTIVITY FOR ESTIMATED NUTRITIONAL NEEDS. 1. CONTINUE WITH [facility] 60GM DIET 2. MONITOR BLOOD GLUCOSE LEVELS 3. CONSULT RD PRN 4. RD TO FOLLOW-UP IN 3-5 DAYS PATIENT IS MODERATE RISK. DELORIS PRUITT RD
--- NOTE | 2022-01-23 19:25 | NUR ---
RECEIVED ENDORSEMENT FROM DAY SHIFT NURSE FOR CONTINUITY OF CARE. PT IS ON BED , AWAKE , ALERT AND RESPONSIVE. IV SITE ON LEFT HAND INTACT AND PATENT.
--- NOTE | 2022-01-23 19:26 | NUR ---
ENDORSED PT TO DAY HABILITATION SPECIALIST NURSE FOR CONTINUITY OF CARE. PT IS STABLE.
--- NOTE | 2022-01-23 20:00 | NUR ---
BLOOD SUGAR CHECK = 216 = 2 UNITS OF INSULIN. PT TOLERATES WELL
[2022-01-24] VITALS: BP 120/80
[2022-01-24] MEDS: BLOOD GLUCOSE MONITORING 1 DEV DEV FS SCH ×3 (00:56→08:53)
[2022-01-24] MEDS: INSULIN LISPRO 100 UNITS/ML VIAL SUBQ PRN ×2 (01:26→05:33)
[2022-01-24] MEDS: POTASSIUM CHL 20 MEQ/ 1/2 NS 1,000 ML IV SCH ×2 (01:30→08:19)
--- NOTE | 2022-01-24 03:09 | NUR ---
PT IS SLEEPING, IV FLUID INFUSING WELL. PT TOLERATES WELL.
--- NOTE | 2022-01-24 04:00 | NUR ---
BLOOD SUGAR CHECK = 201 = 2 UNITS. PT STABLE AND TOLERATES INSULIN INJECTION.
[2022-01-24] MEDS: MEROPENEM 1,000 MG in NACL 0.9% 50 ML IV SCH (05:36)
[2022-01-24 05:55] LABS: ANION GAP 13.3 (8-16); CARBON DIOXIDE 24.4 mmol/L (21-32); CREATININE 1.9 mg/dL (0.6-1.3); POTASSIUM 3.7 mmol/L (3.5-5.1)
[2022-01-24 05:56] LABS: BASOPHILS % (AUTO) 0.5 % (0.0-2.0); EOSINOPHILS # (AUTO) 0.1 K/uL (0-0.4); EOSINOPHILS % (AUTO) 1.9 % (0.0-4.0); HEMATOCRIT 26.9 % (36-48); HEMOGLOBIN 9.3 g/dL (12.0-16.0); LYMPHOCYTES # (AUTO) 1.9 K/uL (2.5-16.5); LYMPHOCYTES % (AUTO) 39.4 % (20.5-51.1); MEAN CORPUSCULAR HEMOGLOBIN 30 pg (27-31); MEAN CORPUSCULAR HGB CONC 34 g/dL (33-37); MEAN CORPUSCULAR VOLUME 88.3 fL (80-94); MONOCYTES # (AUTO) 0.5 K/uL (0.8-1.0); MONOCYTES % (AUTO) 10.5 % (1.7-9.3); NEUTROPHILS # (AUTO) 2.3 K/uL (1.8-7.7); NEUTROPHILS % (AUTO) 47.7 % (42.2-75.2); PLATELET COUNT (AUTO) 265 K/uL (140-450); RED BLOOD CELL COUNT(AUTO) 3.04 MIL/uL (4.20-5.40); RED CELL DISTRIBUTION WIDTH 13.6 % (11.6-13.7); WHITE BLOOD COUNT (AUTO) 4.9 K/uL (4.8-10.8)
[2022-01-24 08:00] VITALS: BP 103/60
[2022-01-24] MEDS: SODIUM PHOS / POTASSIUM PHOS 1 PKT PDR PO SCH (08:55)
[2022-01-24] MEDS: PANTOPRAZOLE 40 MG TABEC PO SCH (08:56)
[2022-01-24] MEDS: INSULIN LANTUS 100 UNITS/ML 10 ML VIAL SUBQ SCH (08:57)
[2022-01-24] MEDS ORDERED: AMOX-999 PO (09:56)
[2022-01-24] MEDS ORDERED: ONDA-188 SL (10:01)
[2022-01-24 10:33] VITALS: BP 103/60
[2022-01-24] MEDS: CALCIUM CARB/VIT-D 500 MG/200 IU 1 TAB PO SCH (11:14)
--- NOTE | 2022-01-24 11:24 | NUR ---
DISCHARGE PATIENT IN STABLE CONDITION PER PCP ORDER, DISCHARGE INSTRUCTION GIVEN, DISCHARGE CONSENT SIGNED, IV ACCESS & WRIST BAND REMOVED. PATIENT IS READY TO BE PICKED UP BY FAMILY MEMBER
== END 2022-01-24 11:40 | disposition home or self-care (01) | DRG 420 ==
LOC: MED 15:49 → MTU 20:20 → MIC 01-18 11:26 → MTU 01-21 17:35
PROVIDERS: ADMIT Student in an Organized Health Care Education/Training Program; ATTEND Student in an Organized Health Care Education/Training Program
PROC: 5A0955A Assistance with Respiratory Ventilation, Greater than 96 Consecutive Hours, High Flow/Velocity Cannula (ICD-10-PCS; principal; 2022-01-17)
DX: E10.10 Type 1 diabetes mellitus with ketoacidosis without coma (principal); J96.01 Acute respiratory failure with hypoxia; E44.0 Moderate protein-calorie malnutrition; E86.0 Dehydration; E83.51 Hypocalcemia; N39.0 Urinary tract infection, site not specified; D64.9 Anemia, unspecified; E83.42 Hypomagnesemia; E87.1 Hypo-osmolality and hyponatremia; Z16.12 Extended spectrum beta lactamase (ESBL) resistance; E87.6 Hypokalemia; E78.5 Hyperlipidemia, unspecified; Z20.822 Contact with and (suspected) exposure to COVID-19; B96.20 Unspecified Escherichia coli [E. coli] as the cause of diseases classified elsewhere; Z79.4 Long term (current) use of insulin; Z82.49 Family history of ischemic heart disease and other diseases of the circulatory system; Z83.3 Family history of diabetes mellitus; Z91.199 Patient's noncompliance with other medical treatment and regimen due to unspecified reason; Z79.899 Other long term (current) drug therapy; Z68.31 Body mass index [BMI] 31.0-31.9, adult
CPT/HCPCS: 36415; 36600; 71045; 74150; 76770; 80048; 80053; 80202; 80305; 81001; 82009; 82150; 82803; 82948; 83690; 83735; 84100; 84439; 84443; 84484; 85025; 85610; 85730; 87040; 87081; 87086; 93005; 96361; 96365; 96366; 96375; 99291; J0696; J1815; J1885; J2001; J2185; J2405; J2543; J2765; J3370; J3475; J3480; J7030; J7060; Q0092

== ENCOUNTER 2022-05-16 23:13 | Emergency (ER) | payer MEDICAID ==
[~2022-05-16] VITALS: Ht 172.7 cm; Wt 88.5 kg
[~2022-05-16 23:13] MED LIST changes: +AMOX-999 PO; +ONDA-188 SL; -SULF-954 PO
[2022-05-16 23:29] VITALS: BP 131/90
--- NOTE | 2022-05-16 23:29 | NUR ---
to bed ambulatory
--- NOTE | 2022-05-16 23:52 | NUR ---
26YR OLD FEMALE BIB SELF C/O L EYE PAIN. X3DAYS PAIN LEVEL 8/10. NO DISCHARGE NOTED . +REDDNESS +SWELLING. PT HAS NO VISUAL DISTRUBANCES. HAD THIS BEFORE WITH R [facility]. PT HAS DM. DENIES ANY INJURY OR FB TO EYE NKDA DM
[2022-05-17] MEDS ORDERED: TETRACAINE HCL/PF 0.5% OPTH 4 ML BTL OP ONE (00:45)
[2022-05-17] MEDS ORDERED: FLUORESCEIN OPTH STRIP 1 MG OP ONE (00:45)
--- NOTE | 2022-05-17 01:21 | NUR ---
ER AT BEDSIDE
[2022-05-17] MEDS ORDERED: ACET-10509 PO (01:27)
[2022-05-17] MEDS ORDERED: IBUP-2218 PO (01:27)
[2022-05-17 01:33] VITALS: BP 131/90
--- NOTE | 2022-05-17 01:33 | NUR ---
Patient discharged with v/s stable. Written and verbal after care instructions given and explained. Patient alert, oriented and verbalized understanding of instructions. Ambulatory with steady gait. All questions addressed prior to discharge. ID band removed. Patient advised to follow up with PMD. Rx of TYLENOL AND IBUPROFEN given. Patient educated on indication of medication including possible reaction and side effects. Opportunity to ask questions provided and answered.
== END 2022-05-17 01:33 | disposition home or self-care (01) ==
LOC: MED 23:13
DX: H10.9 Unspecified conjunctivitis (principal); R03.0 Elevated blood-pressure reading, without diagnosis of hypertension; E10.39 Type 1 diabetes mellitus with other diabetic ophthalmic complication; E42 Marasmic kwashiorkor; Z79.899 Other long term (current) drug therapy; Z79.1 Long term (current) use of non-steroidal anti-inflammatories (NSAID); Z79.2 Long term (current) use of antibiotics
CPT/HCPCS: 99283

== ENCOUNTER 2022-07-01 14:12 | Emergency (ER) | payer MEDICAID ==
[~2022-07-01] VITALS: Ht 172.7 cm; Wt 88.0 kg
[~2022-07-01 14:12] MED LIST changes: +ACET-10509 PO; +IBUP-2218 PO
[2022-07-01 14:26] VITALS: BP 122/84
[2022-07-01] MEDS ORDERED: NACL 0.9% 1,000 ML IV ONE (14:55)
[2022-07-01 15:04] LABS: APPEARANCE,URINE CLEAR (CLEAR); BILIRUBIN,URINE NEGATIVE (NEGATIVE); BLOOD, URINE 1+ (NEGATIVE); LEUKOCYTE ESTERASE ,URINE NEGATIVE (NEGATIVE); NITRITE, URINE NEGATIVE (NEGATIVE); UGLUCOSE 3+ (NEGATIVE)
[2022-07-01 15:09] LABS: BASOPHILS # (AUTO) 0.1 K/uL (0.00-0.22); BASOPHILS % (AUTO) 0.6 % (0.0-2.0); EOSINOPHILS # (AUTO) 0.1 K/uL (0-0.4); EOSINOPHILS % (AUTO) 1.3 % (0.0-4.0); HEMATOCRIT 35.7 % (36-48); LYMPHOCYTES # (AUTO) 2.5 K/uL (2.5-16.5); LYMPHOCYTES % (AUTO) 27.8 % (20.5-51.1); MEAN CORPUSCULAR HEMOGLOBIN 30 pg (27-31); MEAN CORPUSCULAR HGB CONC 34 g/dL (33-37); MEAN CORPUSCULAR VOLUME 89.8 fL (80-94); MONOCYTES # (AUTO) 0.2 K/uL (0.8-1.0); MONOCYTES % (AUTO) 2.6 % (1.7-9.3); NEUTROPHILS # (AUTO) 6.1 K/uL (1.8-7.7); NEUTROPHILS % (AUTO) 67.7 % (42.2-75.2); PLATELET COUNT (AUTO) 215 K/uL (140-450); RED BLOOD CELL COUNT(AUTO) 3.97 MIL/uL (4.20-5.40); RED CELL DISTRIBUTION WIDTH 13.1 % (11.6-13.7)
[2022-07-01 15:23] LABS: COLOR,URINE STRAW (YELLOW); RBC,URINE 0-5 /HPF (0-5); WBC,URINE 0-5 /HPF (0-5)
[2022-07-01 15:32] LABS: ALBUMIN 3.6 g/dL (3.4-5.0); ANION GAP 13.7 (8-16); CARBON DIOXIDE 27.7 mmol/L (21-32); CREATININE 0.8 mg/dL (0.6-1.3); POTASSIUM 4.4 mmol/L (3.5-5.1)
--- NOTE | 2022-07-01 15:40 | NUR ---
RESTING IN BED, NO DISTRESS OR S/S. WENT TO CLINIC EARLIER, TOLD TO COME TO ED FOR ELEVATED SUGAR AND HIGH A1C
[2022-07-01] MEDS ORDERED: INSULIN LISPRO 100 UNITS/ML VIAL SUBQ ONE (16:10)
[2022-07-01] MEDS ORDERED: INSU100I15 SQ (17:38)
[2022-07-01 18:04] VITALS: BP 110/70
--- NOTE | 2022-07-01 18:06 | NUR ---
Patient discharged with v/s stable. Written and verbal after care instructions given and explained. Patient alert, oriented and verbalized understanding of instructions. Ambulatory with steady gait. All questions addressed prior to discharge. ID band removed. Patient advised to follow up with PMD. Rx of INSULIN given. Patient educated on indication of medication including possible reaction and side effects. Opportunity to ask questions provided and answered.
== END 2022-07-01 18:04 | disposition home or self-care (01) ==
LOC: MED 14:12
DX: E11.65 Type 2 diabetes mellitus with hyperglycemia (principal); Z79.4 Long term (current) use of insulin; Z79.899 Other long term (current) drug therapy
CPT/HCPCS: 36415; 80053; 81001; 81025; 82948; 85025; 96360; 96372; 99283; J1815; J7030

== ENCOUNTER 2022-10-01 14:14 | Emergency (ER) | payer MEDICAID ==
[~2022-10-01] VITALS: Ht 172.7 cm; Wt 94.3 kg
[~2022-10-01 14:14] MED LIST changes: +INSU100I15 SQ
[2022-10-01 15:35] VITALS: BP 117/81
[2022-10-01] MEDS ORDERED: DOCU-299 PO (16:41)
[2022-10-01] MEDS ORDERED: ERYT5OIN58 LEFT EYE (16:41)
[2022-10-01] MEDS ORDERED: MIRABULK PO (16:41)
[2022-10-01 16:48] LABS: BILIRUBIN,URINE NEGATIVE (NEGATIVE); BLOOD, URINE 3+ (NEGATIVE); COLOR,URINE YELLOW (YELLOW); LEUKOCYTE ESTERASE ,URINE NEGATIVE (NEGATIVE); NITRITE, URINE POSITIVE (NEGATIVE); UGLUCOSE 3+ (NEGATIVE)
[2022-10-01 16:49] LABS: APPEARANCE,URINE HAZY (CLEAR)
--- NOTE | 2022-10-01 16:50 | NUR ---
Patient discharged with v/s stable. Written and verbal after care instructions given and explained. Patient verbalized understanding. Ambulatory with steady gait. All questions addressed prior to discharge. Advised to follow up with PMD. D/C PER PROVIDER MCKEON
[2022-10-01 17:07] LABS: RBC,URINE 0-5 /HPF (0-5)
== END 2022-10-01 16:56 | disposition home or self-care (01) ==
LOC: MED 14:14
DX: H10.9 Unspecified conjunctivitis (principal); K59.00 Constipation, unspecified; Z79.899 Other long term (current) drug therapy
CPT/HCPCS: 74018; 81001; 81025; 87086; 99284

== ENCOUNTER 2023-11-01 17:34 | Emergency (ER) | payer MEDICAID, OTHER ==
[~2023-11-01] VITALS: Ht 172.7 cm; Wt 100.7 kg
[~2023-11-01 17:34] MED LIST changes: +DOCU-299 PO; +ERYT5OIN58 LEFT EYE; +MIRABULK PO
[2023-11-01 18:16] VITALS: BP 120/88; PULSE 121; RESP 16; TEMP 98.3; O2SAT 98
[2023-11-01 18:55] LABS: BASOPHILS % (AUTO) 0.7 % (0.0-2.0); EOSINOPHILS % (AUTO) 0.5 % (0.0-4.0); HEMOGLOBIN 13.5 g/dL (12.0-16.0); LYMPHOCYTES # (AUTO) 1.6 K/uL (2.5-16.5); LYMPHOCYTES % (AUTO) 24.1 % (20.5-51.1); MEAN CORPUSCULAR HEMOGLOBIN 29 pg (27-31); MEAN CORPUSCULAR HGB CONC 34 g/dL (33-37); MEAN CORPUSCULAR VOLUME 86.5 fL (80-94); MONOCYTES # (AUTO) 0.4 K/uL (0.8-1.0); MONOCYTES % (AUTO) 6.3 % (1.7-9.3); NEUTROPHILS # (AUTO) 4.7 K/uL (1.8-7.7); NEUTROPHILS % (AUTO) 68.4 % (42.2-75.2); PLATELET COUNT (AUTO) 171 K/uL (140-450); RED BLOOD CELL COUNT(AUTO) 4.63 MIL/uL (4.20-5.40); RED CELL DISTRIBUTION WIDTH 13.7 % (11.6-13.7); WHITE BLOOD COUNT (AUTO) 6.8 K/uL (4.8-10.8)
[2023-11-01 19:04] LABS: APPEARANCE,URINE CLEAR (CLEAR); BILIRUBIN,URINE 1+ (NEGATIVE); BLOOD, URINE 2+ (NEGATIVE); COLOR,URINE YELLOW (YELLOW); LEUKOCYTE ESTERASE ,URINE TRACE (NEGATIVE); NITRITE, URINE NEGATIVE (NEGATIVE); PROTEIN,URINE 2+ (NEGATIVE); UGLUCOSE 3+ (NEGATIVE)
[2023-11-01 19:09] LABS: ANION GAP 10.9 (8-16); CARBON DIOXIDE 27.5 mmol/L (21-32); CREATININE 1.1 mg/dL (0.6-1.3); POTASSIUM 3.4 mmol/L (3.5-5.1)
[2023-11-01 19:16] LABS: ALBUMIN 3.5 g/dL (3.4-5.0); BILIRUBIN,DIRECT 0.2 mg/dL (0.0-0.3); TOTAL BILIRUBIN 0.8 mg/dL (0.0-1.0)
[2023-11-01 19:27] LABS: BACTERIA,URINE >30 (MANY) /HPF (None Seen); ICTOTEST NEGATIVE (NEGATIVE); MUCUS,URINE 1+ /LPF (None Seen); RBC,URINE 11-20 (MOD) /HPF (0-5); SQUAMOUS EPITHELIAL CELL,UR 4-10 (MOD) /LPF (0-3 (FEW)); WBC,URINE 16-25 (MOD) /HPF (0-5)
[2023-11-01 19:28] LABS: TRICHOMONAS,URINE None Seen /HPF (None Seen); WHITE BLOOD CELL CASTS,URINE None Seen /LPF (None Seen); YEAST,URINE None Seen /HPF (None Seen)
[2023-11-01] MEDS: INSULIN LISPRO 100 UNITS/ML VIAL SUBQ ONE (21:28)
[2023-11-01] MEDS: INSULIN REGULAR, HUMAN 100 UNIT/ML VIAL IVP ONE (22:32)
[2023-11-01 23:08] VITALS: BP 122/84; PULSE 86; RESP 18; TEMP 97.3; O2SAT 97
== END 2023-11-01 23:08 | disposition home or self-care (01) ==
LOC: MED 17:34
DX: E11.65 Type 2 diabetes mellitus with hyperglycemia (principal); Z79.899 Other long term (current) drug therapy
CPT/HCPCS: 36415; 80048; 80076; 81001; 81025; 82948; 85025; 87086; 87186; 96372; 99285; J1815